=== PATIENT | female | born 1960 | race Hispanic/Latino ===

== ENCOUNTER → 2018-09-01 | Outpatient (CLI) | payer BC | END | disposition home or self-care (01) | LOC: RAH 14:14 | PROVIDERS: ATTEND Family Medicine | DX: Z12.31 Encounter for screening mammogram for malignant neoplasm of breast (principal) | CPT/HCPCS: 77067 ==

== ENCOUNTER → 2018-09-16 | Outpatient (CLI) | payer BC | END | disposition home or self-care (01) | LOC: RAH 07:34 | PROVIDERS: ATTEND Family Medicine | DX: K76.0 Fatty (change of) liver, not elsewhere classified (principal); R16.0 Hepatomegaly, not elsewhere classified | CPT/HCPCS: 76705 ==

== ENCOUNTER 2019-06-11 23:34 | Emergency (ER) | payer BC ==
[2019-06-11] MEDS ORDERED: PHENAZOPYRIDINE HCL 200 MG TABLET ONE (23:53)
[2019-06-12 00:02] LABS: BASOPHILS % (AUTO) 0.8 % (0.0-5.0); EOSINOPHILS % (AUTO) 2.2 % (0.0-8.0); HEMATOCRIT 35.2 % (36-48); LYMPHOCYTES % (AUTO) 35.3 % (21.0-51.0); MEAN CORPUSCULAR HEMOGLOBIN 31.8 pg (27.0-33.0); MEAN CORPUSCULAR HGB CONC 35.2 g/dL (32.0-36.0); MEAN CORPUSCULAR VOLUME 90.2 fL (79-99); MONOCYTES % (AUTO) 6.3 % (3.0-13.0); NEUTROPHILS % (AUTO) 55.4 % (40.0-77.0); PLATELET COUNT (AUTO) 236 K/uL (130-400); RED CELL DISTRIBUTION WIDTH 12.9 % (11.0-15.5); WHITE BLOOD COUNT (AUTO) 6.6 K/uL (4.8-10.8)
[2019-06-12 00:09] LABS: CREATININE 0.7 mg/dL (0.5-1.5); POTASSIUM 4.2 mmol/L (3.5-5.1)
[2019-06-12 00:16] LABS: ALBUMIN 3.7 g/dL (3.5-5.0); BILIRUBIN,DIRECT 0.1 mg/dL (0.0-0.3); BILIRUBIN,TOTAL 0.3 mg/dL (0.2-1.0); TOTAL PROTEIN, SERUM 6.9 g/dL (6.0-8.3)
[2019-06-12 00:36] LABS: APPEARANCE,URINE Clear (CLEAR); BILIRUBIN,URINE Negative (NEGATIVE); COLOR,URINE Yellow (YELLOW); GLUCOSE, URINE (UA) Negative (NEGATIVE); KETONES,URINE Negative (NEGATIVE); LEUKOCYTE ESTERASE ,URINE Small (NEGATIVE); NITRATE,URINE Negative (NEGATIVE); OCCULT BLOOD,URINE Negative (NEGATIVE); PH,URINE 5.5 (5.0-8.0); PROTEIN,URINE Negative (NEGATIVE)
[2019-06-12 01:02] LABS: BACTERIA,URINE None Seen /HPF (None Seen); MUCUS,URINE Rare LPF (None Seen); RBC,URINE None Seen /HPF (0-1); SQUAMOUS EPITHELIAL CELL,UR Few /HPF (0-2)
== END 2019-06-12 01:01 | disposition home or self-care (01) ==
LOC: EDH 23:34
DX: N39.0 Urinary tract infection, site not specified (principal); Z90.49 Acquired absence of other specified parts of digestive tract; Z98.890 Other specified postprocedural states; Z88.1 Allergy status to other antibiotic agents
CPT/HCPCS: 36415; 80048; 80076; 81001; 85025

== ENCOUNTER → 2019-07-17 | Outpatient (CLI) | payer BC | END | disposition home or self-care (01) | LOC: RAH 13:07 | PROVIDERS: ATTEND Family Medicine | DX: N83.291 Other ovarian cyst, right side (principal); Z90.710 Acquired absence of both cervix and uterus; Z90.721 Acquired absence of ovaries, unilateral | CPT/HCPCS: 76856 ==

== ENCOUNTER 2019-12-16 18:55 | Emergency (ER) | payer BC ==
[2019-12-16] MEDS ORDERED: ONDANSETRON ODT 4 MG TAB ONE (20:03)
[2019-12-16 20:18] LABS: BASOPHILS % (AUTO) 0.5 % (0.0-5.0); EOSINOPHILS % (AUTO) 1.1 % (0.0-8.0); HEMATOCRIT 39.7 % (36-48); LYMPHOCYTES % (AUTO) 42.4 % (21.0-51.0); MEAN CORPUSCULAR HEMOGLOBIN 29.7 pg (27.0-33.0); MEAN CORPUSCULAR VOLUME 87.3 fL (79-99); MONOCYTES % (AUTO) 5.3 % (3.0-13.0); NEUTROPHILS % (AUTO) 50.5 % (40.0-77.0); PLATELET COUNT (AUTO) 281 K/uL (130-400); RED BLOOD CELL COUNT(AUTO) 4.55 MIL/uL (4.00-5.50); RED CELL DISTRIBUTION WIDTH 12.2 % (11.0-15.5); WHITE BLOOD COUNT (AUTO) 6.3 K/uL (4.8-10.8)
[2019-12-16 20:33] LABS: CREATININE 0.6 mg/dL (0.5-1.5); POTASSIUM 3.7 mmol/L (3.5-5.1)
[2019-12-16 20:37] LABS: ALBUMIN 4.5 g/dL (3.5-5.0); BILIRUBIN,TOTAL 0.6 mg/dL (0.2-1.0); TOTAL PROTEIN, SERUM 7.9 g/dL (6.0-8.3)
== END 2019-12-16 22:12 | disposition home or self-care (01) ==
LOC: EDH 18:55
DX: K76.0 Fatty (change of) liver, not elsewhere classified (principal); Z88.1 Allergy status to other antibiotic agents; Z90.710 Acquired absence of both cervix and uterus; Z98.890 Other specified postprocedural states
CPT/HCPCS: 36415; 76705; 80053; 83690; 85025

== ENCOUNTER → 2020-09-12 | Outpatient (CLI) | payer BC | END | disposition home or self-care (01) | LOC: RAH 15:30 | PROVIDERS: ATTEND Family Medicine | DX: Z12.31 Encounter for screening mammogram for malignant neoplasm of breast (principal) | CPT/HCPCS: 77067 ==

== ENCOUNTER → 2021-11-25 | Outpatient (CLI) | payer BC | END | disposition home or self-care (01) | LOC: RAH 08:24 | PROVIDERS: ATTEND Family Medicine | DX: Z12.31 Encounter for screening mammogram for malignant neoplasm of breast (principal); N63.20 Unspecified lump in the left breast, unspecified quadrant | CPT/HCPCS: 77067 ==

== ENCOUNTER → 2024-02-20 | Outpatient (CLI) | payer BC | END | disposition home or self-care (01) | LOC: RAH 10:12 | PROVIDERS: ATTEND Family Medicine | DX: Z12.31 Encounter for screening mammogram for malignant neoplasm of breast (principal); N63.10 Unspecified lump in the right breast, unspecified quadrant; N63.20 Unspecified lump in the left breast, unspecified quadrant | CPT/HCPCS: 77067 ==

== ENCOUNTER → 2025-02-22 | Outpatient (CLI) | payer BC ==
--- NOTE | 2025-02-22 11:15 | HMCIMG ---
MAMMO SCREENING BILATERAL HISTORY: Screening mammogram. COMPARISON: 02/20/2024 TECHNIQUE: Bilateral screening mammogram with CAD was performed with craniocaudal and mediolateral oblique projections. FINDINGS: There are scattered areas of fibroglandular density. Nodular densities are again seen in the right breast unchanged. Bilateral dystrophic calcifications are again seen grossly unchanged. There is no evidence of a dominant mass, or suspicious microcalcification. There is no evidence of nipple retraction or skin thickening. IMPRESSION: 1. Stable mammogram. Patient was entered into a reminder system with a target due date for their next mammogram. BI-RADS: CATEGORY 2: BENIGN FINDINGS Recommend monthly self breast exam as well as annual clinical examination. A negative x-ray should not delay biopsy if a dominant or clinically suspicious mass is present, since 8-10% of cancers are not identified by mammography. Dense breasts particularly, may obscure an underlying neoplasm. Some of these may be detected clinically and therefore, clinical examination is an essential part of breast evaluation.
== END | disposition home or self-care (01) ==
LOC: RAH 10:35
PROVIDERS: ATTEND Physician Assistant Medical
DX: Z12.31 Encounter for screening mammogram for malignant neoplasm of breast (principal); R92.30 Dense breasts, unspecified
CPT/HCPCS: 77067

== ENCOUNTER 2025-03-01 18:00 | Emergency (ER) | payer BC ==
[~2025-03-01] VITALS: Ht 154.9 cm; Wt 77.1 kg
[2025-03-01 18:02] VITALS: TEMP 98.3
--- NOTE | 2025-03-01 18:15 | ERN ---
General Chief Complaint: Abdominal Pain Stated Complaint: RUQ PAIN X 10 YRS, WORSE TODAY Time Seen by MD: 18:03 Time Seen by Midlevel: 18:03 Source: patient History of Present Illness Initial Comments Patient is a 64-year-old female with a past medical history of gastritis presenting to the emergency department with right upper quadrant abdominal pain that started at approximately 10:00 a.m. this morning. She does report similar episodes in the past that has been intermittent in nature for years. However, they usually resolve. Today she states the pain started at 10 has been constant ever since. Denies any nausea or vomiting. She is followed by GI specialist Dr. Gopal Nolen. Denies any other symptoms at this time Allergies: Coded Allergies: clindamycin (Unverified Allergy, Unknown, 06/12/19) codeine (Unverified Allergy, Unknown, 03/01/25) Past Medical History Past Medical History: GERD Past Surgical History: Hysterectomy ROS Dictation CONSTITUTIONAL: Negative except for HPI HEAD/FACE: Negative except for HPI EENT: Negative except for HPI RESPIRATORY: Negative except for HPI GASTROINTESTINAL/ABDOMINAL: Negative except for HPI GENITOURINARY: Negative except for HPI MUSCULOSKELETAL: Negative except for HPI INTEGUMENTARY: Negative except for HPI NEUROLOGICAL/PSYCH: Negative except for HPI HEMATOLOGIC/LYMPHATIC: Negative except for HPI All Systems Negative, Except as noted above. 13 point review of systems assessed and all negative except for above. Physical Exam Physical Exam Dictation Vital Signs reviewed General Appearance: Alert, oriented x 3, no acute distress, well developed, nourished. Head and Face: non-traumatic. Eyes: PERRL, pink conjunctivas, eyelid no trauma, anterior chamber with arcus senilis. Ears: Pinnas intact and no signs of trauma or erythema ear canals clear and no discharge TM no erythema Nose: No discharge, no bleeding. Oropharynx: Mouth normal, tongue pink, pharynx clear,no erythema, tonsils no exudates, no abscesses noted, mucous membrane moist Neck: Supple, non-tender, no thyromegaly, no masses, no JVD, no bruits Breast:Deferred Chest:No tenderness, no crepitus, no paradoxical movement, no retractions Lungs:Clear, well-ventilated, symmetric, no rales, no wheezing, no rhonchi, no stridor, good breath sounds bilaterally Heart: Regular rate, regular rhythm, no murmur, no gallops Vascular: no peripheral edema, Abdomen: Soft, positive bowel sounds, nondistended, no guarding, Mild right upper quadrant abdominal tenderness, no rebound, no masses no hepatomegaly, no splenomegaly, no Rincon's sign, no hernias. Rectal: Deferred Genital: Deferred Neurological: Normal speech, motor function intact, sensory function intact Musculoskeletal: Neck nontender, full range of motion, back nontender, full range of motion, Extremities: nontender, full range of motion Skin: Color pink, dry, no turgor, no rash, no lacerations, no abrasions, no contusions. Lymphatic: Deferred Results Laboratory and Microbiology Lab and Micro Result Laboratory Tests Test 03/01/25 18:27 03/01/25 18:28 Urine Color LIGHT-YELLOW (YELLOW) Urine Appearance CLEAR (CLEAR) Urine pH 6.0 (5.0-8.0) Urine Specific [place] 1.018 (1.001-1.031) Urine Protein NEGATIVE mg/dL (NEGATIVE) Urine Glucose (UA) NEGATIVE mg/dL (NEGATIVE) Urine Ketones NEGATIVE mg/dL (NEGATIVE) Urine Occult Blood NEGATIVE (NEGATIVE) Urine Nitrate NEGATIVE (NEGATIVE) Urine Bilirubin NEGATIVE mg/dL (NEGATIVE) Urine Urobilinogen 0.2 mg/dL (0.2-1.0) Urine Leukocyte Esterase 75 Felipe/uL (NEGATIVE) H Urine RBC 0-1 /HPF (0-1) Urine WBC 2-5 /HPF (0-1) H Urine Squamous Epithelial Cells RARE /HPF (0-2) Urine Bacteria FEW /HPF (None Seen) White Blood Count 5.1 K/uL (4.8-10.8) Red Blood Count 4.08 MIL/uL (4.00-5.50) Hemoglobin 12.3 g/dL (12.0-16.0) Hematocrit 37.0 % (36-48) Mean Corpuscular Volume 90.7 fL (79-99) Mean Corpuscular Hemoglobin 30.1 pg (27.0-33.0) Mean Corpuscular Hemoglobin Concent 33.2 g/dL (32.0-36.0) Red Cell Distribution Width 12.4 % (11.0-15.5) Platelet Count 241 K/uL (130-400) Mean Platelet Volume 11.0 fL (7.5-10.5) H Immature Granulocyte % (Auto) 0.4 % (0-1) Neutrophils (%) (Auto) 51.7 % (40.0-77.0) Lymphocytes (%) (Auto) 40.0 % (21.0-51.0) Monocytes (%) (Auto) 6.1 % (3.0-13.0) Eosinophils (%) (Auto) 1.4 % (0.0-8.0) Basophils (%) (Auto) 0.4 % (0.0-5.0) Neutrophils # (Auto) 2.6 K/uL (1.8-7.7) Lymphocytes # (Auto) 2.0 K/uL (1.0-4.8) Monocytes # (Auto) 0.3 K/uL (0.1-1.0) Eosinophils # (Auto) 0.07 K/uL (0.00-0.70) Basophils # (Auto) 0.02 K/uL (0.00-0.20) Absolute Immature Granulocyte (auto 0.02 K/uL (0-1) Nucleated Red Blood Cells 0.0 % (0.0-0.19) Sodium Level 139 mmol/L (136-145) Potassium Level 4.0 mmol/L (3.5-5.1) Chloride Level 102 mmol/L (101-111) Carbon Dioxide Level 31 mmol/L (21-32) Blood Urea Nitrogen 13 mg/dL (7-18) Creatinine 0.7 mg/dL (0.5-1.0) Glomerular Filtration Rate Calc 98 mL/min (>90) Random Glucose 89 mg/dL (70-105) Total Calcium 8.7 mg/dL (8.5-10.1) Total Bilirubin 0.4 mg/dL (0.2-1.0) Direct Bilirubin 0.1 mg/dL (0.0-0.3) Aspartate Amino Transf (AST/SGOT) 17 U/L (10-37) Alanine Aminotransferase (ALT/SGPT) 21 U/L (12-78) Alkaline Phosphatase 80 U/L (50-136) Total Protein 7.1 g/dL (6.0-8.3) Albumin 3.9 g/dL (3.5-5.0) Lipase 55 U/L (16-77) Labs Reviewed?: Yes MDM MDM: Patient is a 64-year-old female with a past medical history of gastritis presenting to the emergency department with right upper quadrant abdominal pain that started at approximately 10:00 a.m. this morning. She does report similar episodes in the past that has been intermittent in nature for years. However, they usually resolve. Today she states the pain started at 10 has been constant ever since. Denies any nausea or vomiting. She is followed by GI specialist Dr. Gopal Nolen. Denies any other symptoms at this time Initial vital signs are stable. Patient was afebrile and nontoxic appearing. On physical examination patient has mild right upper quadrant abdominal tenderness with no rebound or guarding. The remainder of her physical examination is unremarkable. An abdominal workup was initiated. CBC shows no leukocytosis, no anemia, no thrombocytopenia. Chemistries unremarkable. LFTs are normal. Bilirubin is normal. No signs of biliary obstruction. Urinalysis not show any evidence of infection. Right upper quadrant abdominal ultrasound reveals small gallstones with borderline ductal dilation. The patient was given 15 mg of ketorolac IV. On repeat examination she reports feeling significantly improved. Lab and imaging findings were discussed with the patient she was advised to follow up with the general surgeon sourav Oconnor did offer admission for further observation and management however the patient refused and states she will be following up outpatient. Differential diagnosis: Acute cholecystitis, cholelithiasis, biliary colic, grijalva creatitis There are no social concerns with this patient. Prescription drug management Prescriptions will include: None Medical management and examination interpretation discussions were had by me with other qualified healthcare professionals as indicated for the patient's care. ED Course Orders Procedure Category Date Status Time Cbc With Differential LAB 03/01/25 Complete 18:09 Basic Metabolic Panel LAB 03/01/25 Complete 18:09 Lipase LAB 03/01/25 Complete 18:09 Hepatic Function Panel LAB 03/01/25 Complete 18:09 Urinalysis Profile LAB 03/01/25 Complete 18:09 Us Abdominal Ruq\Ltd US 03/01/25 Resulted 18:09 Ketorolac PHA 03/01/25 Complete Tromethamine 15mg/Ml 18:30 Culture Urine ALEXY 03/01/25 In Process 18:48 Current Medications Medications (Trade) Dose Ordered Sig/Larry Route PRN Reason Start Time Stop Time Status Last Admin Dose Admin Ketorolac Tromethamine (toRADol) 15 mg ONCE ONCE IV 03/01/25 18:30 03/01/25 18:31 DC 03/01/25 18:56 Vital Signs Date Time Temp Pulse Resp B/P (MAP) Pulse Ox O2 Delivery O2 Flow Rate FiO2 03/01/25 20:44 63 15 112/60 97 Room Air* 0 21 03/01/25 18:02 98.2 74 16 110/65 98 Room Air 0 03/01/25 18:02 98.2 74 16 110/65 98 Room Air* 0 21 DX & DISP Disposition: Discharge Departure Impression: Primary Impression: Biliary colic Additional Impression: Cholelithiasis Condition: Stable Additional Instructions: Your blood work today is unremarkable. Your right upper quadrant ultrasound reveals small gallstones with borderline ductal dilation however there was no evidence of acute cholecystitis. You will need to follow up with the general surgeon outpatient for further evaluation. Referrals: ROB BOSCH (PCP) ROB VILLANUEVA MD, NICOLE M MD MCKENNA, MICHAEL J DO Time of Disposition: 21:20 I have reviewed the case, and I agree with, Diagnosis and Plan I performed the substantive portion of the visit. I have reviewed and personally made and approve the management plan that is documented in the note by myself or the ZANDER. I acknowledge for responsibility for the patient's management plan. LASHANDA LAZO Mar 01, 2025 18:15
[2025-03-01 18:38] LABS: BASOPHILS # (AUTO) 0.02 K/uL (0.00-0.20); BASOPHILS % (AUTO) 0.4 % (0.0-5.0); EOSINOPHILS # (AUTO) 0.07 K/uL (0.00-0.70); EOSINOPHILS % (AUTO) 1.4 % (0.0-8.0); IMMATURE GRANULOCYTE ABSOLUTE 0.02 K/uL (0-1); MEAN CORPUSCULAR HEMOGLOBIN 30.1 pg (27.0-33.0); MEAN CORPUSCULAR HGB CONC 33.2 g/dL (32.0-36.0); MEAN CORPUSCULAR VOLUME 90.7 fL (79-99); MONOCYTES # (AUTO) 0.3 K/uL (0.1-1.0); MONOCYTES % (AUTO) 6.1 % (3.0-13.0); NEUTROPHILS # (AUTO) 2.6 K/uL (1.8-7.7); NEUTROPHILS % (AUTO) 51.7 % (40.0-77.0); PLATELET COUNT (AUTO) 241 K/uL (130-400); RED BLOOD CELL COUNT(AUTO) 4.08 MIL/uL (4.00-5.50); RED CELL DISTRIBUTION WIDTH 12.4 % (11.0-15.5); WHITE BLOOD COUNT (AUTO) 5.1 K/uL (4.8-10.8)
[2025-03-01 18:44] LABS: APPEARANCE,URINE CLEAR (CLEAR); BILIRUBIN,URINE NEGATIVE (NEGATIVE); COLOR,URINE LIGHT-YELLOW (YELLOW); GLUCOSE, URINE (UA) NEGATIVE (NEGATIVE); KETONES,URINE NEGATIVE (NEGATIVE); LEUKOCYTE ESTERASE ,URINE 75 Leu/uL (NEGATIVE); NITRATE,URINE NEGATIVE (NEGATIVE); OCCULT BLOOD,URINE NEGATIVE (NEGATIVE); PROTEIN,URINE NEGATIVE (NEGATIVE); UROBILINOGEN,URINE 0.2 mg/dL (0.2-1.0)
[2025-03-01 18:47] LABS: CREATININE 0.7 mg/dL (0.5-1.0)
[2025-03-01 18:48] LABS: ADD UA MICROSCOPIC YES
[2025-03-01 18:51] LABS: ALBUMIN 3.9 g/dL (3.5-5.0); BILIRUBIN,DIRECT 0.1 mg/dL (0.0-0.3); BILIRUBIN,TOTAL 0.4 mg/dL (0.2-1.0); TOTAL PROTEIN, SERUM 7.1 g/dL (6.0-8.3)
[2025-03-01 18:53] LABS: BACTERIA,URINE FEW /HPF (None Seen); MUCUS,URINE RARE LPF (None Seen); RBC,URINE 0-1 /HPF (0-1); SQUAMOUS EPITHELIAL CELL,UR RARE /HPF (0-2)
[2025-03-01] MEDS: ketOROlac 15MG/ML VIAL (15MG/ML) IV ONE (18:56)
--- NOTE | 2025-03-01 20:46 | HMCIMG ---
US ABDOMINAL RUQ\E\LTD HISTORY: Abdominal pain COMPARISON: None TECHNIQUE: Right upper quadrant abdominal ultrasound study was performed. FINDINGS: Liver measures 18 cm. The visualized portion of the pancreas is within normal limits. Liver is echogenic consistent with liver parenchymal disease. Small gallstones are seen in the gallbladder. Common duct measures 6 mm. No evidence of gallbladder wall thickening is seen. Right kidney measures 10.4 x 5.1 x 4.7 cm. No hydronephrosis is seen of the right kidney. IMPRESSION: 1. Small gallstones. Borderline ductal dilatation is seen. 2. No hydronephrosis is seen.
[2025-03-01 21:51] VITALS: BP 115/65; PULSE 63; RESP 15; O2SAT 97
== END 2025-03-01 21:52 | disposition home or self-care (01) ==
LOC: EDH 18:00
DX: K80.50 Calculus of bile duct without cholangitis or cholecystitis without obstruction (principal); K80.20 Calculus of gallbladder without cholecystitis without obstruction; K21.9 Gastro-esophageal reflux disease without esophagitis; Z88.5 Allergy status to narcotic agent; Z90.710 Acquired absence of both cervix and uterus; Z88.1 Allergy status to other antibiotic agents
CPT/HCPCS: 99284; 96374; 76705; 80076; 80048; 83690; 85025; 87086; 81001; 36415; J1885

== ENCOUNTER 2025-03-09 10:48 | Inpatient (IN) | payer BC ==
[~2025-03-09] VITALS: Ht 175.3 cm; Wt 76.2 kg
[2025-03-09 11:22] LABS: APPEARANCE,URINE CLEAR (CLEAR); BILIRUBIN,URINE NEGATIVE (NEGATIVE); GLUCOSE, URINE (UA) NEGATIVE (NEGATIVE); KETONES,URINE NEGATIVE (NEGATIVE); LEUKOCYTE ESTERASE ,URINE NEGATIVE Leu/uL (NEGATIVE); NITRATE,URINE NEGATIVE (NEGATIVE); OCCULT BLOOD,URINE NEGATIVE (NEGATIVE); PROTEIN,URINE NEGATIVE (NEGATIVE); UROBILINOGEN,URINE 0.2 mg/dL (0.2-1.0)
[2025-03-09 11:26] LABS: ADD UA MICROSCOPIC NO; COLOR,URINE LIGHT-YELLOW (YELLOW)
[2025-03-09] MEDS: ketOROlac 15MG/ML VIAL (15MG/ML) IV ONE (11:27)
[2025-03-09] MEDS: morPHINE 4 MG SYG IVP ONE (11:27)
[2025-03-09 11:28] LABS: BASOPHILS # (AUTO) 0.04 K/uL (0.00-0.20); BASOPHILS % (AUTO) 0.8 % (0.0-5.0); EOSINOPHILS # (AUTO) 0.05 K/uL (0.00-0.70); HEMATOCRIT 38.5 % (36-48); IMMATURE GRANULOCYTE ABSOLUTE 0.01 K/uL (0-1); LYMPHOCYTES # (AUTO) 1.9 K/uL (1.0-4.8); LYMPHOCYTES % (AUTO) 37.8 % (21.0-51.0); MEAN CORPUSCULAR HEMOGLOBIN 30.4 pg (27.0-33.0); MEAN CORPUSCULAR HGB CONC 33.8 g/dL (32.0-36.0); MONOCYTES # (AUTO) 0.3 K/uL (0.1-1.0); MONOCYTES % (AUTO) 5.4 % (3.0-13.0); NEUTROPHILS # (AUTO) 2.7 K/uL (1.8-7.7); NEUTROPHILS % (AUTO) 54.8 % (40.0-77.0); PLATELET COUNT (AUTO) 252 K/uL (130-400); RED BLOOD CELL COUNT(AUTO) 4.28 MIL/uL (4.00-5.50); RED CELL DISTRIBUTION WIDTH 12.3 % (11.0-15.5)
[2025-03-09] MEDS: LACTATED RINGERS 1000ML 1,000 ML IV ONE (11:28)
[2025-03-09 11:42] LABS: ALBUMIN 4.3 g/dL (3.5-5.0); BILIRUBIN,DIRECT 0.1 mg/dL (0.0-0.3); BILIRUBIN,TOTAL 0.5 mg/dL (0.2-1.0); CREATININE 0.5 mg/dL (0.5-1.0); POTASSIUM 3.9 mmol/L (3.5-5.1); TOTAL PROTEIN, SERUM 7.5 g/dL (6.0-8.3)
[2025-03-09 11:54] LABS: INR 0.98 (0.85-1.15); PROTHROMBIN TIME 10.4 SEC (9.6-11.6)
--- NOTE | 2025-03-09 11:57 | ERN ---
General Chief Complaint: Abdominal Pain Stated Complaint: ABDOMINAL PAIN RUQ Time Seen by MD: 10:50 History of Present Illness Initial Comments 64-year-old female presents for right upper quadrant pain, nausea, decreased oral intake for the last week. Patient reports she had an onset of right upper quadrant pain about a week ago. She was evaluated here and told she had gallstones. She was discharged home to follow up with GI. She reports that since then she was had consistent right upper quadrant pain that does not re solve. She has been very nauseous, and unable to eat for almost seven days now. She was able to drink liquids. No fevers. She was tender to the right upper quadrant. The pain radiates to her back. Allergies: Coded Allergies: clindamycin (Unverified Allergy, Unknown, 06/12/19) codeine (Unverified Allergy, Unknown, 03/01/25) Past Medical History Past Medical History: Gallstones, GERD Past Surgical History: Hysterectomy ROS Dictation CONSTITUTIONAL: No chills, no fever, no weakness, no diaphoresis, no malaise. HEAD/FACE: No signs of trauma. EENT: No eye pain, no blurred vision, no tearing, no double vision, no ear pain, no ear discharge, no nose pain, no nasal congestion, no throat pain, no throat swelling, no mouth pain. RESPIRATORY: No cough, no orthopnea, no SOB, no stridor, no wheezing. CARDIOVASCULAR: No chest pain, no edema, no palpitations, no syncope. GASTROINTESTINAL/ABDOMINAL: Abdominal pain right upper quadrant pain nausea GENITOURINARY: No abnormal discharge, no dysuria, no frequent urination, no hematuria. No complaints of pain in the genitals. MUSCULOSKELETAL: No back pain, no gout, no joint pain, no joint swelling, no muscle pain, no muscle stiffness, no neck pain. INTEGUMENTARY: No change in color, no change in hair/nails, no dryness, no lesion, no lumps, no rash. NEUROLOGICAL/PSYCH: No anxiety, not depressed, no emotional problem, no headache, no numbness, no pre-existing deficit, no history of seizures, no tremors, no weakness. HEMATOLOGIC/LYMPHATIC: Not anemic, no history of blood clots, no apparent bleeding, no bruising, glands not swollen. All Systems Negative, Except as Noted. Physical Exam Physical Exam Dictation VITAL SIGNS: Reviewed. GENERAL APPEARANCE: Alert, oriented x3, moderate distress due to pain HEAD AND FACE: Non-traumatic. EYES: PERRL, pink conjunctivas, eyelid no trauma, anterior chamber clear. EARS: Pinnas intact and no signs of trauma or erythema. Ear canals clear and no discharge. TMs no erythema. NOSE: No discharge, no bleeding. OROPHARYNX: Mouth normal, teeth no caries, tongue pink. Pharynx clear, no erythema. Tonsils no exudates, no abscesses noted. Mucous membrane moist. NECK: Supple, non-tender, no thyromegaly, no masses, no JVD, no bruits. BREAST: Deferred. CHEST: No tenderness, no crepitus, no paradoxical movement, no retractions. LUNGS: Clear, well-ventilated, symmetric, no rales, no wheezing, no rhonchi, no stridor, good breath sounds bilaterally. HEART: Regular rate, regular rhythm, no murmur, no gallops. VASCULAR: No peripheral edema. ABDOMEN: Right upper quadrant tenderness on palpation, no distention RECTAL: Deferred. GENITAL: Deferred. NEUROLOGICAL: Normal speech, gross motor function intact, gross sensory function intact. MUSCULOSKELETAL: Neck nontender, full range of motion, back nontender, full range of motion. EXTREMITIES: Nontender, full range of motion. SKIN: Color pink, dry, no turgor, no rash, no lacerations, no abrasions, no contusions. LYMPHATICS: Deferred. Results Laboratory and Microbiology Lab and Micro Result Laboratory Tests Test 03/09/25 11:15 03/09/25 11:20 Urine Color LIGHT-YELLOW (YELLOW) Urine Appearance CLEAR (CLEAR) Urine pH 6.0 (5.0-8.0) Urine Specific [place] 1.006 (1.001-1.031) Urine Protein NEGATIVE mg/dL (NEGATIVE) Urine Glucose (UA) NEGATIVE mg/dL (NEGATIVE) Urine Ketones NEGATIVE mg/dL (NEGATIVE) Urine Occult Blood NEGATIVE (NEGATIVE) Urine Nitrate NEGATIVE (NEGATIVE) Urine Bilirubin NEGATIVE mg/dL (NEGATIVE) Urine Urobilinogen 0.2 mg/dL (0.2-1.0) Urine Leukocyte Esterase NEGATIVE Felipe/uL White Blood Count 5.0 K/uL (4.8-10.8) Red Blood Count 4.28 MIL/uL (4.00-5.50) Hemoglobin 13.0 g/dL (12.0-16.0) Hematocrit 38.5 % (36-48) Mean Corpuscular Volume 90.0 fL (79-99) Mean Corpuscular Hemoglobin 30.4 pg (27.0-33.0) Mean Corpuscular Hemoglobin Concent 33.8 g/dL (32.0-36.0) Red Cell Distribution Width 12.3 % (11.0-15.5) Platelet Count 252 K/uL (130-400) Mean Platelet Volume 10.5 fL (7.5-10.5) Immature Granulocyte % (Auto) 0.2 % (0-1) Neutrophils (%) (Auto) 54.8 % (40.0-77.0) Lymphocytes (%) (Auto) 37.8 % (21.0-51.0) Monocytes (%) (Auto) 5.4 % (3.0-13.0) Eosinophils (%) (Auto) 1.0 % (0.0-8.0) Basophils (%) (Auto) 0.8 % (0.0-5.0) Neutrophils # (Auto) 2.7 K/uL (1.8-7.7) Lymphocytes # (Auto) 1.9 K/uL (1.0-4.8) Monocytes # (Auto) 0.3 K/uL (0.1-1.0) Eosinophils # (Auto) 0.05 K/uL (0.00-0.70) Basophils # (Auto) 0.04 K/uL (0.00-0.20) Absolute Immature Granulocyte (auto 0.01 K/uL (0-1) Nucleated Red Blood Cells 0.0 % (0.0-0.19) Sodium Level 140 mmol/L (136-145) Potassium Level 3.9 mmol/L (3.5-5.1) Chloride Level 104 mmol/L (101-111) Carbon Dioxide Level 30 mmol/L (21-32) Blood Urea Nitrogen 8 mg/dL (7-18) Creatinine 0.5 mg/dL (0.5-1.0) Glomerular Filtration Rate Calc 106 mL/min (>90) Random Glucose 90 mg/dL (70-105) Total Calcium 9.3 mg/dL (8.5-10.1) Total Bilirubin 0.5 mg/dL (0.2-1.0) Direct Bilirubin 0.1 mg/dL (0.0-0.3) Aspartate Amino Transf (AST/SGOT) 17 U/L (10-37) Alanine Aminotransferase (ALT/SGPT) 21 U/L (12-78) Alkaline Phosphatase 73 U/L (50-136) Total Protein 7.5 g/dL (6.0-8.3) Albumin 4.3 g/dL (3.5-5.0) Lipase 51 U/L (16-77) MDM CC: Right upper quadrant abdominal pain radiates to the right back and flank, known gallstones Historian: Patient Comorbidities: Hysterectomy Limitations by social determinants of health: None Differential diagnosis: Cholelithiasis, choledocholithiasis, cholecystitis, cholangitis, gastritis, surgical pathology, sepsis, other Vital signs: Stable, remained stable here in the ER. Labs (independently ordered and interpreted by me ): The CBC is normal. Electrolytes stable. Liver enzymes stable. Lipase stable. Urinalysis unremarkable. I performed an external chart review, she had an ultrasound done on 03/01/2025 with the time she had borderline ductal dilation common bile duct measuring six with small gallstones. She has been symptomatic since she visited this facility, she was had decreased oral intake and she was in quite significant pain. Treatment here in ED: 1 L normal saline, and p.o., given IV morphine. On re- evaluation she was still uncomfortable. Due to intractable pain in symptoms most consistent with cholelithiasis versus choledocholithiasis, we will admit the patient for further treatment and evaluation. She would likely needs an MRCP. Consultation: Hospitalist. ED Course Orders Procedure Category Date Status Time Cbc With Differential LAB 03/09/25 Complete 11:03 Urinalysis Profile LAB 03/09/25 Complete 11: Chest 1vw RAD 03/09/25 Taken 11:03 Lipase LAB 03/09/25 Complete 11:03 Basic Metabolic Panel LAB 03/09/25 Complete 11:03 Hepatic Function Panel LAB 03/09/25 Complete 11:03 Prothrombin Time With LAB 03/09/25 In Process INR 11:03 Nothing By Mouth DIET 03/09/25 Transmitted Lunch Lactated Ringers PHA 03/09/25 Complete 1000ml (Lactated 11:30 Morphine 4mg Syg PHA 03/09/25 Complete (Morphine 4mg Syg) 11:30 Ketorolac PHA 03/09/25 Complete Tromethamine 15mg/Ml 11:30 Current Medications Medications (Trade) Dose Ordered Sig/Larry Route PRN Reason Start Time Stop Time Status Last Admin Dose Admin Ketorolac Tromethamine (toRADol) 15 mg ONCE ONCE IV 03/09/25 11:30 03/09/25 11:31 DC 03/09/25 11:27 Lactated Ringer's 1,000 ml @ 0 mls/hr ONCE ONCE IV 03/09/25 11:30 03/09/25 11:31 DC 03/09/25 11:28 Morphine Sulfate (morPHINE 4MG SYG) 4 mg ONCE ONCE IVP 03/09/25 11:30 03/09/25 11:31 DC 03/09/25 11:27 Vital Signs Date Time Temp Pulse Resp B/P (MAP) Pulse Ox O2 Delivery O2 Flow Rate FiO2 03/09/25 11:12 98.1 54 20 130/73 98 Room Air* 0 21 03/09/25 10:50 98.1 54 20 130/73 98 Room Air DX & DISP Disposition: Discharge Departure Impression: Primary Impression: Cholelithiasis Additional Impression: Intractable pain Condition: Stable Referrals: ROB BOSCH (PCP) LIZZIE MONTOYA DO March 09, 2025 11:57
[2025-03-09] MEDS ORDERED: CALC-259 PO (12:08)
[2025-03-09] MEDS ORDERED: SUCR1TAB2 PO (12:09)
[2025-03-09] MEDS ORDERED: OMEP40CA21 PO (12:10)
[2025-03-09] MEDS ORDERED: BIOT10TA PO (12:14)
[2025-03-09] MEDS ORDERED: OMEG100033 PO (12:15)
[2025-03-09] MEDS ORDERED: VITA400T9 PO (12:16)
--- NOTE | 2025-03-09 12:16 | NUR ---
HOME MEDICATIONS IN CHART. PENDING TO BE RECONSILED BY PHYSICIAN.
--- NOTE | 2025-03-09 12:22 | HMCIMG ---
Exam Type: CHEST 1VW Clinical Information: chest pain Comparison: None Findings: The lungs are clear. The heart is normal in size. There is tortuosity of the aorta which artifactually enlarges the mediastinum. No actual mediastinal pathology is detected. IMPRESSION: Tortuous aorta. Clear lungs.
--- NOTE | 2025-03-09 13:12 | NUR ---
ASSUMED CARE AT THIS TIME.
[2025-03-09] MEDS ORDERED: acetaMINOPHEN 325 MG TAB PO PRN ×3 (14:00)
[2025-03-09] MEDS ORDERED: oxyCODONE/aceTAMIN 5/325MG TAB PO PRN (14:00)
[2025-03-09] MEDS ORDERED: ZOLPidem TARTrate 5 MG TAB PO PRN (14:00)
[2025-03-09] MEDS ORDERED: NITROGLYCERIN 0.4 MG SL TAB SL PRN (14:00)
[2025-03-09] MEDS ORDERED: hydrALAZine 20MG/ML VIAL IV PRN (14:00)
[2025-03-09] MEDS ORDERED: DiphenhydrAMINE HCL 50 MG/ML VIAL IV PRN (14:00)
[2025-03-09] MEDS ORDERED: morPHINE 2 MG SYG IVP PRN (14:00)
[2025-03-09] MEDS ORDERED: GLUCAGON 1MG KIT 1 MG ML IM PRN (14:00)
[2025-03-09] MEDS ORDERED: PoTASSium chloRIDE 10MEQ SR 10 MEQ/TAB TAB.SR.24H PO PRN (14:00)
[2025-03-09] MEDS ORDERED: FAMOTIDINE 20MG VIAL IV PRN (14:00)
[2025-03-09] MEDS ORDERED: PoTASSium chloRIDE 10MEQ/100ML 100 ML IV PRN (14:00)
[2025-03-09] MEDS ORDERED: ondanSETRON 4MG INJ IV PRN (14:00)
[2025-03-09] MEDS ORDERED: MAGNESIUM 2GM PREMIX 50ML 50 ML IV PRN (14:00)
[2025-03-09] MEDS ORDERED: PoTASSium chl 10% ELIXIR 20MEQ 20 MEQ/15 ML UDCUP PO PRN (14:00)
[2025-03-09] MEDS ORDERED: PoTASSium chloRIDE 20MEQ ER 20 MEQ ERTAB PO PRN (14:00)
[2025-03-09] MEDS ORDERED: DEXTROSE 50%-WATER 50 ML DISP.SYRIN IV PRN (14:00)
[2025-03-09] MEDS ORDERED: LACTULOSE 20 GM/30 ML UDCUP PO PRN (14:00)
[2025-03-09] MEDS ORDERED: guaiFENesin-DM 200/20MG 10ML PO PRN (14:00)
[2025-03-09] MEDS ORDERED: MAG/ALUM/SIMETH 30 ML UDCUP PO PRN (14:00)
[2025-03-09] MEDS: ketOROlac 15MG/ML VIAL (15MG/ML) IV PRN ×2 (14:10→21:07)
[2025-03-09] MEDS: 0.9%NACL 1000ML 1,000 ML IV SCH (14:10)
--- NOTE | 2025-03-09 14:43 | NUR ---
DCP: HOME Pt works at [employer], states when not sick, very active and independent, drives, able to complete ADLS on her own. Requires no assistance with home management and meal prep. Uses no DME or in home care services. PCP Abbey Hooker and uses [facility] for rx. Denies dc needs and will return home Addendum: 03/09/25 at 1452 by MICHEAL MAZARIEGOS Amended: Links added.
--- NOTE | 2025-03-09 16:14 | HP ---
[facility] HISTORY AND PHYSICAL Date of Service: March 09, 2025 Time of Service: 15:22 PCP:Dr Keith Mota Admitting: Dr Darling, Allergies: Clindamycin, codeine HISTORY OF PRESENT ILLNESS: [ Patient is 64 years old female with a past medical history of polyps removal, hysterectomy, gastritis, glaucoma, hyperlipidemia, diabetes, gallstones, GERD, who came to emergency department for evaluation of the right upper quadrant pain associated with the nausea, vomiting and decreased oral intake for the past about a week. Patient stated that she has been having right upper quadrant pain for about a week which the pain radiates to her back on right side. Previously she was here at [facility] and she was notified that she had gallstone within she was discharged home and asked to follow up with GI outpatient. Since the pain has not resolved and that is intolerable patient dec ided to come to emergency department today. Right upper quadrant is tender to touch. ] Most recent vital signs temperature 98.2� pulse 61 respiration 12 blood pressure 121/48 patient is on room air satting 97%. WBC hemoglobin 13 hematocrit 38.5 Platelets 252 urinalysis negative sodium 140 potassium 3.9 CO2 30 BUN 8 creatinine 0.5 GFR 106 bilirubin 0.5 AST 70 ALT 21 albumin 4.3 lipase 51. Chest x-ray negative. 03/01/2025 ultrasound abdomen showed small gallstones. In borderline ductal dilation is seen. No hydronephrosis is seen. We will order MRCP in the meantime. Patient will be admitted under hospitalist care for further evaluation/recommendation. GI and surgeon was consulted. A.m. labs REVIEW OF SYSTEMS CONSTITUTIONAL: Denies fevers, chills, or night sweats. No unintentional weight loss reported. NEUROLOGICAL: Denies headache, amaurosis fugax, motor weakness, sensory deficit, vertigo/spinning sensation, gait abnormalities, or tremors. ENT: No hearing loss, otalgia, otorrhea, rhinitis, rhinorrhea, hoarseness, or sore throat. CARDIOVASCULAR: Denies any exertional angina, dyspnea on exertion, orthopnea, paroxysmal nocturnal dyspnea, palpitations, life-threatening arrhythmias, claudication. PULMONARY: Denies any shortness of breath, cough, phlegm/sputum, hemoptysis, pleuritic chest pain. SLEEP: Denies morning headaches, daytime somnolence or napping. Denies difficulty falling asleep, staying asleep, waking from sleep. Denies knowledge of snoring. GASTROINTESTINAL: Denies any type of dysphagia to either liquids or solids. Denies pyrosis, early satiety, , diarrhea, constipation, or changes in stool consistency or caliber. Denies coffee-ground emesis, hematemesis, hematochezia, or melanotic stools. Severe abdominal pain right upper quadrant radiating to the back. Nausea and vomiting GENITOURINARY: Denies frequency, urgency, nocturia, hematuria or incontinence (Storage/Irritative symptoms.) Low urinary stream, straining to void, urinary intermittency or hesitancy, splitting of the voiding stream, terminal dribbling. ENDOCRINOLOGIC: Denies polyuria, polydipsia, polyphagia or heat/cold intolerances. HEMATOLOGIC: Denies thrombophilia/previous clots, or coagulopathy/bleeding disorders. ONCOLOGIC: Denies personal history of malignancy. DERMATOLOGIC: Denies rashes or pruritus. PSYCHIATRIC: Denies any suicidal or homicidal ideation. Denies hallucinations. PAST MEDICAL HISTORY: [Gastritis, glaucoma, hyperlipidemia, diabetes, gallstones, GERD ] PAST SURGICAL HISTORY: [Polyp removal, hysterectomy ] PAST SOCIAL HISTORY: [Patient denies smoking. Patient denies any drug illicit. Patient denies alcohol use] FAMILY HISTORY: [ Patient has the home with hospice ] Coded Allergies: clindamycin (Unverified Allergy, Unknown, 06/12/19) codeine (Unverified Allergy, Unknown, 03/01/25) PHYSICAL EXAM GENERAL APPEARANCE: The patient is awake, alert, and oriented, in no acute cardiopulmonary distress. NEUROLOGICAL: Cranial nerves II-XII grossly intact. Motor is 5/5 in bilateral upper and lower extremities proximal to distal. No sensory deficits. HEENT: Face is symmetric. Pupils are equal and reactive. Extraocular movements are intact. NECK: Supple. No JVD. No thyromegaly. No submental, submandibular, pre-/postauricular, occipital or supraclavicular lymphadenopathy. CHEST: Normal chest expansion. No Telemetry. LUNGS: Absence of any rales, rhonchi or any wheezing. CARDIOVASCULAR: Regular. S1 and S2 normal. No appreciable rubs, murmurs or gallops. ABDOMEN: Soft, , and nondistended. There is no rebound, voluntary guarding, or rigidity.tender : Deferred. No Ann. EXTREMITIES: Non-edematous and not cyanotic. No clubbing. Good capillary refill. SKIN: No skin breakdown. Vital Sign (Last 24 Hours) 03/09/25 12:00 Temp 98.2 Pulse 61 Resp 12 B/P (MAP) 121/48 Pulse Ox 97 O2 Delivery Room Air* O2 Flow Rate 0 FiO2 21 LABS: Laboratory: Test 03/09/25 11:20 03/09/25 11:15 Range/Units White Blood Count 5.0 4.8-10.8 K/uL Red Blood Count 4.28 4.00-5.50 MIL/uL Hemoglobin 13.0 12.0-16.0 g/dL Hematocrit 38.5 36-48 % Mean Corpuscular Volume 90.0 79-99 fL Mean Corpuscular Hemoglobin 30.4 27.0-33.0 pg Mean Corpuscular Hemoglobin Concent 33.8 32.0-36.0 g/dL Red Cell Distribution Width 12.3 11.0-15.5 % Platelet Count 252 130-400 K/uL Mean Platelet Volume 10.5 7.5-10.5 fL Immature Granulocyte % (Auto) 0.2 0-1 % Neutrophils (%) (Auto) 54.8 40.0-77.0 % Lymphocytes (%) (Auto) 37.8 21.0-51.0 % Monocytes (%) (Auto) 5.4 3.0-13.0 % Eosinophils (%) (Auto) 1.0 0.0-8.0 % Basophils (%) (Auto) 0.8 0.0-5.0 % Neutrophils # (Auto) 2.7 1.8-7.7 K/uL Lymphocytes # (Auto) 1.9 1.0-4.8 K/uL Monocytes # (Auto) 0.3 0.1-1.0 K/uL Eosinophils # (Auto) 0.05 0.00-0.70 K/uL Basophils # (Auto) 0.04 0.00-0.20 K/uL Absolute Immature Granulocyte (auto 0.01 0-1 K/uL Nucleated Red Blood Cells 0.0 0.0-0.19 % Prothrombin Time 10.4 9.6-11.6 SEC Prothromb Time International Ratio 0.98 0.85-1.15 Sodium Level 140 136-145 mmol/L Potassium Level 3.9 3.5-5.1 mmol/L Chloride Level 104 101-111 mmol/L Carbon Dioxide Level 30 21-32 mmol/L Blood Urea Nitrogen 8 7-18 mg/dL Creatinine 0.5 0.5-1.0 mg/dL Glomerular Filtration Rate Calc 106 >90 mL/min Random Glucose 90 70-105 mg/dL Total Calcium 9.3 8.5-10.1 mg/dL Total Bilirubin 0.5 0.2-1.0 mg/dL Direct Bilirubin 0.1 0.0-0.3 mg/dL Aspartate Amino Transf (AST/SGOT) 17 10-37 U/L Alanine Aminotransferase (ALT/SGPT) 21 12-78 U/L Alkaline Phosphatase 73 50-136 U/L Total Protein 7.5 6.0-8.3 g/dL Albumin 4.3 3.5-5.0 g/dL Lipase 51 16-77 U/L Urine Color LIGHT-YELLOW YELLOW Urine Appearance CLEAR CLEAR Urine pH 6.0 5.0-8.0 Urine Specific [place] 1.006 1.001-1.031 Urine Protein NEGATIVE NEGATIVE mg/dL Urine Glucose (UA) NEGATIVE NEGATIVE mg/dL Urine Ketones NEGATIVE NEGATIVE mg/dL Urine Occult Blood NEGATIVE NEGATIVE Urine Nitrate NEGATIVE NEGATIVE Urine Bilirubin NEGATIVE NEGATIVE mg/dL Urine Urobilinogen 0.2 0.2-1.0 mg/dL Urine Leukocyte Esterase NEGATIVE NEGATIVE Felipe/uL Current Medications Medications (Trade) Dose Ordered Sig/Larry Route PRN Reason Start Time Stop Time Status Last Admin Dose Admin Acetaminophen (TYLenol 325MG TAB) 650 mg Q4H PRN PO MILD PAIN (1-3) 03/09/25 14:00 04/08/25 13:59 Acetaminophen (TYLenol 325MG TAB) 650 mg Q6H PRN PO MILD PAIN (1-3) 03/09/25 14:00 03/09/25 13:52 DC Acetaminophen (TYLenol 325MG TAB) 650 mg Q6H PRN PO TEMPERATURE GREATER THAN 101.5 03/09/25 14:00 04/08/25 13:59 Al Hydroxide/Mg Hydroxide (MAALox PLUS 30ML) 30 ml Q6H PRN PO INDIGESTION 03/09/25 14:00 04/08/25 13:59 Dextrose (D50w) 50 ml AD PRN IV HYPOGLYCEMIA PROTOCOL 03/09/25 14:00 04/08/25 13:59 Diphenhydramine HCl (BENAdryl INJ) 25 mg Q6H PRN IV SEVERE ITCHING/RASH 03/09/25 14:00 04/08/25 13:59 Famotidine (Pepcid 20mg Vial) 20 mg BID IV 03/09/25 21:00 04/08/25 20:59 Famotidine (Pepcid 20mg Vial) 20 mg BID PRN IV NAUSEA/VOMITING 03/09/25 14:00 03/09/25 13:53 DC Glucagon (Glucagon 1mg Kit) 1 mg AD PRN IM HYPOGLYCEMIA PROTOCOL 03/09/25 14:00 04/08/25 13:59 Guaifenesin/ Dextromethorphan (RobiTUSSin DM 200/20MG 10ML) 10 ml Q4H PRN PO COUGH 03/09/25 14:00 04/08/25 13:59 Hydralazine HCl (APRESOLine 20MG INJ) 10 mg Q6H PRN IV For:SBP above 160;DBP above 90 03/09/25 14:00 04/08/25 13:59 Insulin Human Regular (humuLIN R 100 UNIT/ML 3ML) INSULIN SLIDING SCAL... ACHS SQ 03/09/25 16:30 04/08/25 16:29 Ketorolac Tromethamine (toRADol) 15 mg Q8H PRN IV MODERATE PAIN (4-6) 03/09/25 14:00 03/14/25 13:59 03/09/25 14:10 15 MG Lactulose (Constulose 20gm/ 30ml Udcup) 20 gm BID PRN PO CONSTIPATION 03/09/25 14:00 04/08/25 13:59 Magnesium Sulfate 50 ml @ 0 mls/hr PROTOCOL PRN IV other 03/09/25 14:00 04/08/25 13:59 Morphine Sulfate (morPHINE 2MG SYG) 1 mg Q4H PRN IVP SEVERE PAIN (7-10) 03/09/25 14:00 03/16/25 13:59 Nitroglycerin (Nitrostat) 0.4 mg PROTOCOL PRN SL CHEST PAIN 03/09/25 14:00 04/08/25 13:59 Ondansetron HCl (zoFRAN 4MG INJ) 4 mg Q6H PRN IV NAUSEA/VOMITING 03/09/25 14:00 04/08/25 13:59 Oxycodone/ Acetaminophen (perCOCET) 1 tab Q6H PRN PO SEVERE PAIN (7-10) 03/09/25 14:00 03/09/25 13:54 DC Potassium Chloride 100 ml @ 100 mls/hr AD PRN IV POTASSIUM PROTOCOL 03/09/25 14:00 04/08/25 13:59 Potassium Chloride (K-Dur 10meq Sr Tab) 10 meq AD PRN PO POTASSIUM PROTOCOL 03/09/25 14:00 04/08/25 13:59 Potassium Chloride (K-Dur/Klor-Con 20meq) 10 meq AD PRN PO POTASSIUM PROTOCOL 03/09/25 14:00 03/09/25 13:56 DC Potassium Chloride (KCl 10% Elixir 20meq/15ml) 10 meq AD PRN PO POTASSIUM PROTOCOL 03/09/25 14:00 04/08/25 13:59 Sodium Chloride 1,000 ml @ 100 mls/hr Q10H IV 03/09/25 14:00 04/08/25 13:59 03/09/25 14:10 100 MLS/HR Zolpidem Tartrate (AmbIEN) 5 mg HS PRN PO INSOMNIA 03/09/25 14:00 04/08/25 13:59 DIAGNOSTICS / RADIOLOGY: [ ] ASSESSMENT: [ Acute cholecystitis POA Acute choledocholithiasis POA Severe abdominal pain above POA Intractable nausea and vomiting POA Severe diarrhea POA Uncontrolled diabetes mellitus type 2 with hyperglycemia POA Uncontrolled hypertension POA Hyperlipidemia GERD Glaucoma Gastritis History of hysterectomy History of polyp removal] PLAN: [Admit to: Medical-surgical Consults: GI, surgery Antibiotics: none Tests: MRCP Fluids normal saline at 100 mL/hour NEURO: Minimize central acting medications as possible. Fall Precautions. Well lighted room through the day and minimize interruptions through the night to prevent acute delirium. PULMONARY: Chest x-ray negative Supplemental 02 as needed BiPAP as necessary, for respiratory distress Titrate Fio2 to keep Spo2 > or = 90% DuoNeb�s and CPT as needed IS hourly while awake for pulmonary hygiene Out of bed to chair as tolerated VAP Bundle Maintain aspiration precautions at all times CARDIOVASCULAR: Follow hemodynamics. Vital signs per facility protocol GI & NUTRITION: MRCP pending Ultrasound abdomen small gallstones Continue nutritional support Aspirations precautions Prokinetic agents and laxatives as needed KIDNEYS & ELECTROLYTES: Urine culture pending Strict monitoring of intake and output Daily weights Avoid nephrotoxic agents Monitor electrolytes and replace as needed Goal urine output of 30mL/hr or 0.5mL/kg/hr Medications to be dosed according to renal function. Avoid contrast if possible ENDOCRINE: Maintain blood glucose between 100-180 at all times. Insulin sliding scale for blood glucose management Hypoglycemia and hyperglycemia protocol in place INFECTIOUS DISEASE: Trend temperature, WBC and procalcitonin level Follow cultures, deescalate antibiotics as soon as possible. Panculture if new onset fever HEMATOLOGY & COAGULATION: Monitor H&H. Keep Hgb > 7 Transfuse 1 unit of PRBC for Hgb < 7 Transfuse 1 pack of platelets of platelets < 20, 000 Watch for any signs and symptoms of bleeding SKIN: Pressure ulcer prevention per facility protocol Specialty mattress as needed Treatment plan discussed with patient and family at the bedside Medications to be reconciled once obtained by patient and/or family and available to be reconciled in computer p.r.n. 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 Which of the following were discussed? Hospice Care - Yes / No Therapeutic options - Yes / No Advance Directives - Yes / No Other discussions - 2. Discussed with who? Patient and family member at the bedside 3. Voluntary nature of this service was explained to the patient? Yes / No 4. Amount of time spent - ___ more than 35 minutes ____ 5. Reviewed by Physician? (if this service was performed by NPP) Yes / No ATTESTATION BY PHYSICIAN I have seen and examined the patient. I reviewed the documentation, medical decision making, and treatment plan as noted by the mid-level provider above. I agree with the findings and plan of care. AIDA DARLING MD, KATARZYNA B BARREL POLISHER INSIDE March 09, 2025 16:14
[2025-03-09] MEDS: LORazepam 2 MG/ML 1 ML VIAL IVP ONE (16:29)
[2025-03-09] MEDS: INSULIN humuLIN R 100 UNIT/ML 3ML SQ SCH (16:30)
[2025-03-09] MEDS: diazePAM 5 MG/ML 2 ML SYG IVP ONE (16:32)
[2025-03-09] MEDS ORDERED: GADOTERATE MEGLUMINE 5 MMOL/10 ML VIAL IV ONE (17:12)
[2025-03-09] MEDS: FAMOTIDINE 20MG VIAL IV SCH (22:25)
[2025-03-10] VITALS (7 sets, daily range): BP systolic 114–146; BP diastolic 64–76; PULSE 62–70; RESP 19–20; TEMP 97.7–98.1; O2SAT 97–98
--- NOTE | 2025-03-10 00:06 | NUR ---
REPORT GIVEN TO MUKUL ESPINOZA
[2025-03-10 00:36] LABS: INFLUENZA TYPE A Negative For Type A (NEGATIVE); INFLUENZA TYPE B Negative For Type B (NEGATIVE)
[2025-03-10 06:32] LABS: BASOPHILS # (AUTO) 0.03 K/uL (0.00-0.20); BASOPHILS % (AUTO) 0.9 % (0.0-5.0); EOSINOPHILS # (AUTO) 0.05 K/uL (0.00-0.70); EOSINOPHILS % (AUTO) 1.5 % (0.0-8.0); HEMATOCRIT 35.4 % (36-48); IMMATURE GRANULOCYTE ABSOLUTE 0.01 K/uL (0-1); LYMPHOCYTES # (AUTO) 1.3 K/uL (1.0-4.8); LYMPHOCYTES % (AUTO) 39.6 % (21.0-51.0); MEAN CORPUSCULAR HEMOGLOBIN 30.5 pg (27.0-33.0); MEAN CORPUSCULAR HGB CONC 34.2 g/dL (32.0-36.0); MEAN CORPUSCULAR VOLUME 89.2 fL (79-99); MONOCYTES # (AUTO) 0.2 K/uL (0.1-1.0); MONOCYTES % (AUTO) 6.7 % (3.0-13.0); NEUTROPHILS # (AUTO) 1.7 K/uL (1.8-7.7); PLATELET COUNT (AUTO) 218 K/uL (130-400); RED BLOOD CELL COUNT(AUTO) 3.97 MIL/uL (4.00-5.50); RED CELL DISTRIBUTION WIDTH 12.1 % (11.0-15.5); WHITE BLOOD COUNT (AUTO) 3.3 K/uL (4.8-10.8)
[2025-03-10 07:00] LABS: AMMONIA 20 umol/L (11-32)
[2025-03-10 07:09] LABS: ALANINE AMINOTRANSFERASE 17 U/L (12-78); ALBUMIN 3.7 g/dL (3.5-5.0); ASPARTATE AMINOTRANSFERASE 16 U/L (10-37); BILIRUBIN,DIRECT 0.1 mg/dL (0.0-0.3); BILIRUBIN,TOTAL 0.5 mg/dL (0.2-1.0); CARBON DIOXIDE 27 mmol/L (21-32); CHLORIDE 106 mmol/L (101-111); CREATINE KINASE, TOTAL 44 U/L (21-232); CREATININE 0.5 mg/dL (0.5-1.0); GLOMERULAR FILTR. RATE CALC 106 mL/min (>90); GLUCOSE,RANDOM 85 mg/dL (70-105); POTASSIUM 4.2 mmol/L (3.5-5.1); SODIUM SERUM 141 mmol/L (136-145); TOTAL PROTEIN, SERUM 6.2 g/dL (6.0-8.3); UREA NITROGEN, BLOOD 6 mg/dL (7-18)
[2025-03-10 07:35] LABS: HEMOGLOBIN A1C 5.2 % (4.0-6.0)
--- NOTE | 2025-03-10 09:18 | PN ---
[facility] PROGRESS NOTE Date of Service: March 10, 2025 Time of Service: 09:14 SUBJECTIVE: Patient is 64 years old female with a past medical history of polyps removal, hysterectomy, gastritis, glaucoma, hyperlipidemia, diabetes, gallstones, GERD, who came to emergency department for evaluation of the right upper quadrant pain associated with the nausea, vomiting and decreased oral intake for the past 1 week. the pain radiates to her back on right side. Previously she was here at [facility] and she was notified that she had gallstone and asked to follow up with GI outpatient. Since the pain has not resolved and that is intolerable patient decided to come to emergency department today. As per the patient , she has been experiencing similar pain, but low intensity more than a decade. She has noted the pain gets worse with fatty food intake . She had a colonoscopy done in 2019- with polypectomy , but she didnt show up for subsequent colonoscopy after 3 years . Vital signs at the time of presentation :Temperature 98.2�, pulse 61 ,respiration 12, blood pressure 121/48, patient is on room air satting 97%. Labs show : WBC hemoglobin 13 hematocrit 38.5 Platelets 252, urinalysis negative sodium 140 potassium 3.9 CO2 30 BUN 8 creatinine 0.5 GFR 106 bilirubin 0.5 AST 70 ALT 21 albumin 4.3 lipase 51. Chest x-ray negative. 03/01/2025 ultrasound abdomen showed small gallstones. In borderline ductal dilation is seen. Patient was admitted under hospitalist care for further evaluation. 03.10.25: Patient c/o RUQ abdominal pain.She is kept NPO . Pending surgery and GI recommendations.Pending HIDA scan . REVIEW OF SYSTEMS CONSTITUTIONAL: Denies fevers, chills, or night sweats. No unintentional weight loss reported. NEUROLOGICAL: Denies headache, amaurosis fugax, motor weakness, sensory deficit, vertigo/spinning sensation, gait abnormalities, or tremors. ENT: No hearing loss, otalgia, otorrhea, rhinitis, rhinorrhea, hoarseness, or sore throat. CARDIOVASCULAR: Denies any exertional angina, dyspnea on exertion, orthopnea, paroxysmal nocturnal dyspnea, palpitations, life-threatening arrhythmias, claudication. PULMONARY: Denies any shortness of breath, cough, phlegm/sputum, hemoptysis, pleuritic chest pain. SLEEP: Denies morning headaches, daytime somnolence or napping. Denies difficulty falling asleep, staying asleep, waking from sleep. Denies knowledge of snoring. GASTROINTESTINAL: Denies any type of dysphagia to either liquids or solids. Denies pyrosis, early satiety, , diarrhea, constipation, or changes in stool consistency or caliber. Denies coffee-ground emesis, hematemesis, hematochezia, or melanotic stools. Severe abdominal pain right upper quadrant radiating to the back. Nausea and vomiting GENITOURINARY: Denies frequency, urgency, nocturia, hematuria or incontinence (Storage/Irritative symptoms.) Low urinary stream, straining to void, urinary intermittency or hesitancy, splitting of the voiding stream, terminal dribbling. ENDOCRINOLOGIC: Denies polyuria, polydipsia, polyphagia or heat/cold intolerances. HEMATOLOGIC: Denies thrombophilia/previous clots, or coagulopathy/bleeding disorders. ONCOLOGIC: Denies personal history of malignancy. DERMATOLOGIC: Denies rashes or pruritus. PSYCHIATRIC: Denies any suicidal or homicidal ideation. Denies hallucinations. PHYSICAL EXAM GENERAL APPEARANCE: The patient is awake, alert, and oriented, in no acute cardiopulmonary distress. NEUROLOGICAL: Cranial nerves II-XII grossly intact. Motor is 5/5 in bilateral upper and lower extremities proximal to distal. No sensory deficits. HEENT: Face is symmetric. Pupils are equal and reactive. Extraocular movements are intact. NECK: Supple. No JVD. No thyromegaly. No submental, submandibular, pre- /postauricular, occipital or supraclavicular lymphadenopathy. CHEST: Normal chest expansion. No Telemetry. LUNGS: Absence of any rales, rhonchi or any wheezing. CARDIOVASCULAR: Regular. S1 and S2 normal. No appreciable rubs, murmurs or gallops. ABDOMEN: Soft, , and nondistended. There is no rebound, voluntary guarding, or rigidity.tender over the lower part of rib cage : Deferred. No Ann. EXTREMITIES: Non-edematous and not cyanotic. No clubbing. Good capillary refill. SKIN: No skin breakdown. Vital Signs (last 8hr) Date Time Temp Pulse Resp B/P (MAP) Pulse Ox O2 Delivery O2 Flow Rate FiO2 03/10/25 08:00 98.1 64 19 132/70 98 Room Air 03/10/25 03:13 97.7 70 19 114/67 100 Room Air LABS: Laboratory: Test 03/10/25 06:07 03/10/25 04:52 03/10/25 00:11 03/09/25 11:20 Range/Units White Blood Count 3.3 #L 4.8-10.8 K/uL Red Blood Count 3.97 L 4.00-5.50 MIL/uL Hemoglobin 12.1 12.0-16.0 g/dL Hematocrit 35.4 L 36-48 % Mean Corpuscular Volume 89.2 79-99 fL Mean Corpuscular Hemoglobin 30.5 27.0-33.0 pg Mean Corpuscular Hemoglobin Concent 34.2 32.0-36.0 g/dL Red Cell Distribution Width 12.1 11.0-15.5 % Platelet Count 218 130-400 K/uL Mean Platelet Volume 11.1 H 7.5-10.5 fL Immature Granulocyte % (Auto) 0.3 0-1 % Neutrophils (%) (Auto) 51.0 40.0-77.0 % Lymphocytes (%) (Auto) 39.6 21.0-51.0 % Monocytes (%) (Auto) 6.7 3.0-13.0 % Eosinophils (%) (Auto) 1.5 0.0-8.0 % Basophils (%) (Auto) 0.9 0.0-5.0 % Neutrophils # (Auto) 1.7 L 1.8-7.7 K/uL Lymphocytes # (Auto) 1.3 1.0-4.8 K/uL Monocytes # (Auto) 0.2 0.1-1.0 K/uL Eosinophils # (Auto) 0.05 0.00-0.70 K/uL Basophils # (Auto) 0.03 0.00-0.20 K/uL Absolute Immature Granulocyte (auto 0.01 0-1 K/uL Nucleated Red Blood Cells 0.0 0.0-0.19 % Sodium Level 141 136-145 mmol/L Potassium Level 4.2 3.5-5.1 mmol/L Chloride Level 106 101-111 mmol/L Carbon Dioxide Level 27 21-32 mmol/L Blood Urea Nitrogen 6 L 7-18 mg/dL Creatinine 0.5 0.5-1.0 mg/dL Glomerular Filtration Rate Calc 106 >90 mL/min Random Glucose 85 70-105 mg/dL Hemoglobin A1c 5.2 4.0-6.0 % Estimated Average Glucose (eAG) 103 70-126 mg/dL Lactic Acid Level 1.1 0.8-2.5 mmol/L Total Calcium 8.8 8.5-10.1 mg/dL Magnesium Level 2.20 1.80-2.40 mg/dL Total Bilirubin 0.5 0.2-1.0 mg/dL Direct Bilirubin 0.1 0.0-0.3 mg/dL Aspartate Amino Transf (AST/SGOT) 16 10-37 U/L Alanine Aminotransferase (ALT/SGPT) 17 12-78 U/L Alkaline Phosphatase 62 50-136 U/L Ammonia 20 11-32 umol/L Total Creatine Kinase 44 21-232 U/L Troponin I High Sensitivity < 4.0 L 4-50 ng/L B-Type Natriuretic Peptide 27 0-100 pg/mL Total Protein 6.2 6.0-8.3 g/dL Albumin 3.7 3.5-5.0 g/dL Procalcitonin < 0.05 L 0.05-0.5 ng/mL Whole Blood Glucose 79 70-110 MG/DL Influenza Type A Antigen Negative For Type A NEGATIVE Influenza Type B Antigen Negative For Type B NEGATIVE Prothrombin Time 10.4 9.6-11.6 SEC Prothromb Time International Ratio 0.98 0.85-1.15 Lipase 51 16-77 U/L Test 03/09/25 11:15 Range/Units Urine Color LIGHT-YELLOW YELLOW Urine Appearance CLEAR CLEAR Urine pH 6.0 5.0-8.0 Urine Specific [place] 1.006 1.001-1.031 Urine Protein NEGATIVE NEGATIVE mg/dL Urine Glucose (UA) NEGATIVE NEGATIVE mg/dL Urine Ketones NEGATIVE NEGATIVE mg/dL Urine Occult Blood NEGATIVE NEGATIVE Urine Nitrate NEGATIVE NEGATIVE Urine Bilirubin NEGATIVE NEGATIVE mg/dL Urine Urobilinogen 0.2 0.2-1.0 mg/dL Urine Leukocyte Esterase NEGATIVE NEGATIVE Felipe/uL Current Medications Medications (Trade) Dose Ordered Sig/Larry Route PRN Reason Start Time Stop Time Status Last Admin Dose Admin Acetaminophen (TYLenol 325MG TAB) 650 mg Q4H PRN PO MILD PAIN (1-3) 03/09/25 14:00 04/08/25 13:59 Acetaminophen (TYLenol 325MG TAB) 650 mg Q6H PRN PO MILD PAIN (1-3) 03/09/25 14:00 03/09/25 13:52 DC Acetaminophen (TYLenol 325MG TAB) 650 mg Q6H PRN PO TEMPERATURE GREATER THAN 101.5 03/09/25 14:00 04/08/25 13:59 Al Hydroxide/Mg Hydroxide (MAALox PLUS 30ML) 30 ml Q6H PRN PO INDIGESTION 03/09/25 14:00 04/08/25 13:59 Dextrose (D50w) 50 ml AD PRN IV HYPOGLYCEMIA PROTOCOL 03/09/25 14:00 04/08/25 13:59 Diphenhydramine HCl (BENAdryl INJ) 25 mg Q6H PRN IV SEVERE ITCHING/RASH 03/09/25 14:00 04/08/25 13:59 Famotidine (Pepcid 20mg Vial) 20 mg BID IV 03/09/25 21:00 04/08/25 20:59 03/09/25 22:25 20 MG Famotidine (Pepcid 20mg Vial) 20 mg BID PRN IV NAUSEA/VOMITING 03/09/25 14:00 03/09/25 13:53 DC Glucagon (Glucagon 1mg Kit) 1 mg AD PRN IM HYPOGLYCEMIA PROTOCOL 03/09/25 14:00 04/08/25 13:59 Guaifenesin/ Dextromethorphan (RobiTUSSin DM 200/20MG 10ML) 10 ml Q4H PRN PO COUGH 03/09/25 14:00 04/08/25 13:59 Hydralazine HCl (APRESOLine 20MG INJ) 10 mg Q6H PRN IV For:SBP above 160;DBP above 90 03/09/25 14:00 04/08/25 13:59 Insulin Human Regular (humuLIN R 100 UNIT/ML 3ML) INSULIN SLIDING SCAL... ACHS SQ 03/09/25 16:30 04/08/25 16:29 Ketorolac Tromethamine (toRADol) 15 mg Q6H PRN IV MODERATE PAIN (4-6) 03/09/25 21:00 03/14/25 13:59 03/10/25 04:50 15 MG Ketorolac Tromethamine (toRADol) 15 mg Q8H PRN IV MODERATE PAIN (4-6) 03/09/25 14:00 03/09/25 20:56 DC 03/09/25 14:10 15 MG Lactulose (Constulose 20gm/ 30ml Udcup) 20 gm BID PRN PO CONSTIPATION 03/09/25 14:00 04/08/25 13:59 Magnesium Sulfate 50 ml @ 0 mls/hr PROTOCOL PRN IV other 03/09/25 14:00 04/08/25 13:59 Morphine Sulfate (morPHINE 2MG SYG) 1 mg Q4H PRN IVP SEVERE PAIN (7-10) 03/09/25 14:00 03/16/25 13:59 Nitroglycerin (Nitrostat) 0.4 mg PROTOCOL PRN SL CHEST PAIN 03/09/25 14:00 04/08/25 13:59 Ondansetron HCl (zoFRAN 4MG INJ) 4 mg Q6H PRN IV NAUSEA/VOMITING 03/09/25 14:00 04/08/25 13:59 Oxycodone/ Acetaminophen (perCOCET) 1 tab Q6H PRN PO SEVERE PAIN (7-10) 03/09/25 14:00 03/09/25 13:54 DC Potassium Chloride 100 ml @ 100 mls/hr AD PRN IV POTASSIUM PROTOCOL 03/09/25 14:00 04/08/25 13:59 Potassium Chloride (K-Dur 10meq Sr Tab) 10 meq AD PRN PO POTASSIUM PROTOCOL 03/09/25 14:00 04/08/25 13:59 Potassium Chloride (K-Dur/Klor-Con 20meq) 10 meq AD PRN PO POTASSIUM PROTOCOL 03/09/25 14:00 03/09/25 13:56 DC Potassium Chloride (KCl 10% Elixir 20meq/15ml) 10 meq AD PRN PO POTASSIUM PROTOCOL 03/09/25 14:00 04/08/25 13:59 Sodium Chloride 1,000 ml @ 100 mls/hr Q10H IV 03/09/25 14:00 04/08/25 13:59 03/10/25 09:13 100 MLS/HR Zolpidem Tartrate (AmbIEN) 5 mg HS PRN PO INSOMNIA 03/09/25 14:00 04/08/25 13:59 DIAGNOSTICS / RADIOLOGY: [ ] ASSESSMENT: Acute cholecystitis rule in/out POA Acute choledocholithiasis POA Severe abdominal pain above POA Intractable nausea and vomiting POA Uncontrolled diabetes mellitus type 2 with hyperglycemia POA Uncontrolled hypertension POA Chronic problems : Hyperlipidemia GERD Glaucoma Gastritis H/o bilateral nodular breast densities- stable mammogram reports as per outpatient records. History of hysterectomy History of polyp removal PLAN: [Admit to: Medical-surgical Consults: GI, surgery Acute cholecystitis rule in/out POA Acute choledocholithiasis POA Severe abdominal pain above POA Intractable nausea and vomiting POA Fluids normal saline at 100 mL/hour MRCP- unremarkable . Pending HIDA scan Surgery recommendations appreciated GI consult pending plan for antibiotics . 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 I reviewed the documentation, medical de cision making, and treatment plan as noted by the resident provider above. I agree with the findings and plan of care. Stan Larson MD, ANCHU A MD March 10, 2025 09:18
--- NOTE | 2025-03-10 10:10 | HMCIMG ---
Exam Type: MRI OF THE ABDOMEN WITH AND WITHOUT CONTRAST and MR cholangiopancreatography Comparison Study: none History: anbormal us, cholecystitis PROTOCOL: Examination is done with multiecho multiplanar sequences before and after gadolinium administration. ASSET with multiplanar 3-D reconstructions MR cholangiopancreatography sequences are also available for review. MRCP performed customary fashion. 2D axial FIESTA fat-saturated images of abdomen, coronal thick slab MRCP ASSET scan and coronal thin slab MRCP ASSET 3 mm images and maximum intensity projection postprocessing, MIP projected in the customary circumferential and head over heels fashion. Contrast: MultiHance, 15 cc, IV FINDINGS: Enhancing masses of the right breast are seen, the largest of which measures 20 mm. Smaller one on the left side is seen as well No evidence of nephro or ureterolithiasis is found. No hydronephrosis or ureteral dilatation is seen. The stomach is unremarkable. There is no evidence of gastric dilatation. No blastic thickening is noted to suggest inflammation or tumor. There is no perforation. There is no gastric outlet obstruction. There is no ulceration. The spleen is unremarkable. It is not enlarged. The pancreas shows normal anatomy. It is not fatty replaced. It shows no lesions. The pancreatic duct is not dilated. There is evidence of cholelithiasis. No evidence of acute or chronic inflammation is seen. The adrenal glands are unremarkable. There is no enlargement. No lesions are noted. The liver is unremarkable. It shows no focal masses. The visualized segments of large and small bowel appear unremarkable. The bony and vascular structures are unremarkable for the patient's age. MRCP is likewise unremarkable. The common bile duct is well as the intrahepatic bile ducts are well seen without filling defects to suggest calculi. There are no areas of dilatation or abrupt cutoffs. IMPRESSION: Cholelithiasis. No evidence of acute inflammation of the gallbladder. Bilateral breast masses or solid lesions. Consider bilateral diagnostic mammography with bilateral ultrasound. BI-RADS: CATEGORY 0: INCOMPLETE. NEED ADDITIONAL IMAGING EVALUATION.
--- NOTE | 2025-03-10 11:43 | CONS ---
CONSULT NOTE: Consulting physician: Dr. Perez Consulting service: General surgery Reason for consultation: Cholelithiasis and possible cholecystitis versus symptomatic cholelithiasis History of present illness: This is a 64-year-old female with a medical history listed below that has been consulted to surgery for concerns of abdominal pain associated with nausea and vomiting and decreased oral intake for the last week. Patient with known history of cholelithiasis. Patient has not followed up with a surgeon at this time but has had multiple presentations of concerning abdominal discomfort. Due to significant worsening discomfort patient presented for further evaluation. With the patient's known history of cholelithiasis MRCP ordered which is currently unremarkable for inflammation of gallbladder. Patient is however still reporting upper quadrant discomfort. Patient currently NPO. WBCs unremarkable and LFTs unremarkable as well. Medical history: Known cholelithiasis Gastritis Glaucoma Hyperlipidemia GERD Diabetes Surgical history: Polypectomy Hysterectomy Review of systems: General: No Fever, No Chills, No Night Sweats, No Fatigue, No Malaise, No Appetite, No Other HEENT: No Head Aches, No Visual Changes, No Eye Pain, No Ear Pain, No Dysphasia, No Sinus Congestion, No Post Nasal Drip, No Sore Throat, No Other Pulmonary: No Dyspnea, No Cough, No Pleuritic Chest Pain, No Other Cardiovascular: No: Chest Pain, Palpitations, Orthopnea, Paroxysmal No Dyspnea, Edema, Lt Headedness, Other Gastrointestinal: No: Nausea, Vomiting, Diarrhea, Constipation, Melena, Hematochezia, Other Genitourinary: No Dysuria, No Frequency, No Incontinence, No Hematuria, No Retention, No Other Musculoskeletal: No: other, neck pain, shoulder pain, arm pain, back pain, hand pain, leg pain, foot pain Skin: No Urticaria, No Rash, No Other Neurological: No: Weakness, Numbness, Incoordination, Change in speech, Confusion, Seizures, Other Physical exam: General: Awake alert and oriented Heart: Regular rate and rhythm} Lungs: [Clear to auscultation no distress Abdomen: [Right upper quadrant tenderness Assessment: This is a 64-year-old female with concerns of cholelithiasis and possible symptomatic cholelithiasis versus cholecystitis Plan: This point in time we will obtain HIDA scan for better evaluation of true cholecystitis Patient to remain NPO Patient to continue with current pain management Dr. Tovar to be updated in patient's status and surgical team will continue to follow patient closely. Thank you ANGELIA COYLE Jr. March 10, 2025 11:43
--- NOTE | 2025-03-10 13:44 | HMCIMG ---
HIDA scan INDICATION: cholecystitis. TECHNIQUE: Patient was administered 7 mCi of technetium 99m Choletec IV and dynamic images of the abdomen were obtained over 1 hour. FINDINGS: There is rapid and homogeneous uptake of radiopharmaceutical by the liver, which shows normal size and shape. Activity in the gallbladder noted 20 to 25 minutes after injection of tracer. Normal hepatic clearance with activity in the small bowel. IMPRESSION: No evidence of acute or chronic cholecystitis.
[2025-03-10] MEDS ORDERED: DICYCLOMINE HCL 10 MG/5 ML ML PO ONE (17:00)
[2025-03-10] MEDS ORDERED: MAG/ALUM/SIMETH 30 ML UDCUP PO ONE (17:00)
[2025-03-10] MEDS ORDERED: LIDOCAINE HCL 2% VISCOUS 15 ML UDCUP PO ONE (17:00)
[2025-03-10] MEDS: ketOROlac 15MG/ML VIAL (15MG/ML) IV PRN (17:27)
--- NOTE | 2025-03-10 18:44 | NUR ---
CT ON HOLD OLGA MEZA, PT HAVING QUESTIONS ABOUT CT DUE TO POSSIBLE CLAUSTROPHOBIA AT THIS TIME. OLGA MEZA WILL CALL BACK WITH UPDATE.
[2025-03-10] MEDS: VITAMIN E MIXED PO SCH (21:00)
[2025-03-10] MEDS: VITAMIN D3 PO SCH (21:00)
[2025-03-10] MEDS: [UNRECOGNIZED DRUG - OTHER] PO SCH (21:00)
[2025-03-10] MEDS: CALCIUM CARBONATE PO SCH (21:00)
[2025-03-10] MEDS: PANTOPrazole 40 MG/VIAL IVP SCH (21:35)
[2025-03-10] MEDS: LACTULOSE 20 GM/30 ML UDCUP PO ONE (21:36)
[2025-03-10] MEDS: GABApentin 100 MG CAPSULE PO SCH (21:36)
[2025-03-11] VITALS: BP 123/81; PULSE 74; RESP 18; TEMP 97.8
[2025-03-11 03:52] LABS: BASOPHILS # (AUTO) 0.03 K/uL (0.00-0.20); BASOPHILS % (AUTO) 0.6 % (0.0-5.0); EOSINOPHILS % (AUTO) 2.1 % (0.0-8.0); HEMATOCRIT 36.3 % (36-48); IMMATURE GRANULOCYTE ABSOLUTE 0.01 K/uL (0-1); LYMPHOCYTES # (AUTO) 1.8 K/uL (1.0-4.8); LYMPHOCYTES % (AUTO) 38.4 % (21.0-51.0); MEAN CORPUSCULAR HEMOGLOBIN 30.5 pg (27.0-33.0); MEAN CORPUSCULAR HGB CONC 34.7 g/dL (32.0-36.0); MEAN CORPUSCULAR VOLUME 87.9 fL (79-99); MONOCYTES # (AUTO) 0.4 K/uL (0.1-1.0); MONOCYTES % (AUTO) 7.8 % (3.0-13.0); NEUTROPHILS # (AUTO) 2.4 K/uL (1.8-7.7); NEUTROPHILS % (AUTO) 50.9 % (40.0-77.0); PLATELET COUNT (AUTO) 228 K/uL (130-400); RED BLOOD CELL COUNT(AUTO) 4.13 MIL/uL (4.00-5.50); RED CELL DISTRIBUTION WIDTH 12.1 % (11.0-15.5); WHITE BLOOD COUNT (AUTO) 4.8 K/uL (4.8-10.8)
[2025-03-11 04:00] VITALS: BP 129/55; PULSE 78; RESP 17; TEMP 97.8
[2025-03-11 04:19] LABS: ALBUMIN 3.7 g/dL (3.5-5.0); BILIRUBIN,TOTAL 0.6 mg/dL (0.2-1.0); CREATININE 0.5 mg/dL (0.5-1.0); POTASSIUM 3.7 mmol/L (3.5-5.1); TOTAL PROTEIN, SERUM 6.5 g/dL (6.0-8.3)
--- NOTE | 2025-03-11 05:42 | CONS ---
GASTROINTESTINAL CONSULTATION ADMITTING PHYSICIAN: Say Niño MD REASON FOR CONSULTATION: Right upper quadrant abdominal pain and acute anemia. HISTORY OF PRESENT ILLNESS: The patient is a 64-year-old female with a history of diabetes mellitus and obesity who has undergone hysterectomy and who was admitted with right upper quadrant abdominal pain, nausea, anorexia with acute anemia on labs, for which GI evaluation and management are sought. The patient was noted to have gallstones also on the imaging study, but workup has been negative with respect to MRCP for choledocholithiasis and HIDA scan for cholecystitis. The patient reports that her right upper quadrant abdominal pain has been on and off over the last 10 days. The pain initially began 10 days ago which resolved and started back 5 days ago. She describes the abdominal pain as sharp, constant, unchanged with p.o. food intake or bowel movement and generally radiates to her right back. She denies any abdominal trauma and a history of PUD but admits to history of NSAID use. The patient denies any nausea, vomiting, melena, hematochezia, diarrhea, or constipation. She has weight loss of 15 pounds over the last 9 months, which she owes to Ozempic therapy. The patient reports a family history of gallbladder disease in her mother, but she denies a family history of colon cancer, stomach cancer, esophageal disorders, pancreatic disease, or liver disease. ALLERGIES: CLINDAMYCIN AND CODEINE. PAST MEDICAL AND PAST SURGICAL HISTORY: See above. Also history of diabetes mellitus and Licona's palsy, also glaucoma but no hypertension, coronary artery disease, myocardial infarction, cerebrovascular accident, peptic ulcer, seizure disorder, or asthma. She reports hyperlipidemia though. The patient has undergone hysterectomy. MEDICATIONS: Gabapentin, biotin, omega-3, fish oil, calcium carbonate, vitamin E, pantoprazole, ketorolac, insulin, potassium chloride supplement, hydralazine, morphine sulfate, guaifenesin/dextromethorphan, nitroglycerin, lactulose, milk of magnesia, zolpidem tartrate, ondansetron, acetaminophen, diphenhydramine, magnesium sulfate, and glucagon. SOCIAL HISTORY: The patient denies alcohol use, tobacco use, or illicit drug use. FAMILY HISTORY: Significant for diabetes mellitus and hyperlipidemia, also possible hypertension but no coronary artery disease or myocardial infarction, cerebrovascular accident, colon cancer, stomach cancer, esophageal disorders, liver disease, or pancreatic disease, but she admits to gallbladder disease. REVIEW OF SYSTEMS: CONSTITUTIONAL: The patient reports abdominal pain and nausea, has subsided now. She still has anorexia. She denies any gross GI bleed, fevers, or chills. OPHTHALMOLOGY: She has no vision changes, eye pain, periorbital swelling, redness, or drainage now but does have a history of glaucoma. DERMATOLOGY: Denies any rash, bruise, or excessive dry skin. ENT: No ear pain, tinnitus, hearing loss, nasal congestion, rhinorrhea, sore throat, or voice changes. RESPIRATORY: Denies wheezes, rhonchi, epistaxis, chest congestion, or cough. CARDIOVASCULAR: No chest pain, palpitations, or leg swelling. GENITOURINARY: No dysuria, hematuria, urgency, or frequency. GASTROINTESTINAL: Right upper quadrant abdominal pain and nausea, improved since hospitalization. She still has anorexia. She denies any gross GI bleed, constipation, diarrhea, melena, or hematochezia. MUSCULOSKELETAL: No joint pain, joint swelling, or backache. NEUROLOGY: No tingling, numbness, vision changes, or hearing loss. PSYCHIATRY: No history of depression, anxiety, suicidal plans or ideation. ENDOCRINOLOGY: She has a history of diabetes mellitus and hyperlipidemia but no thyroid disease. HEMATOLOGY/LYMPHATICS: The patient denies any inherited bleeding disorder; easy bruising; swollen, tender or palpable lymph nodes. PHYSICAL EXAMINATION: GENERAL: The patient is a 64-year-old female who appears stated age, resting in bed in no acute respiratory distress. VITAL SIGNS: Blood pressure 146/64, heart rate 65, respirations 19, temperature 98.1 degrees Fahrenheit. SKIN: Warm and dry with no active dermatosis. HEENT: The patient's head is normocephalic atraumatic. Pupils reactive. Sclerae anicteric. Oral mucosa was moist. No obvious lesion. No blood noted. Nasal mucosa showed no epistaxis, septal deviation, or perforation. NECK: No masses, no jugular venous distention, no lymphadenopathy, no thyromegaly. LUNGS: Clear to auscultation bilaterally. HEART: S1 and S2. No obvious murmurs, rubs, or gallops auscultated. ABDOMEN: Symmetric, soft with active bowel sounds. No hepatomegaly or masses. Marked tenderness noted in the right lower abdominal quadrant with guarding. No rebound tenderness. EXTREMITIES: No cyanosis, clubbing, or edema. RECTAL: Deferred. LABORATORY DATA: WBC 3.3, hemoglobin 12.1, hematocrit 35.4, MCV of 89.2, platelet count 218. PT 10.4, INR 0.98. Serum chemistry revealed today sodium of 141, potassium of 4.2, chloride of 106, CO2 of 27, BUN of 6, creatinine of 0.5, GFR of 106, random glucose of 85, lactic acid of 1.1, total calcium of 8.8, magnesium level of 2.2. Total bilirubin of 0.5, direct bilirubin of 0.1, AST 16, ALT 17, alk phos 62, ammonia level of 20. Total creatinine kinase of 44. Troponin I high sensitivity of less than 4. Beta-type natriuretic peptide 27. Total protein of 6.2, albumin of 3.7. Procalcitonin less than 0.05. One day ago, lipase level was 51. UA was essentially negative. Influenza type A and B antigens were negative. HIDA scan done today was normal with no evidence of acute or chronic cholecystitis. MRCP done today showed cholelithiasis. No evidence of acute inflammation of the gallbladder. The spleen, stomach, and pancreas are within normal limits. Liver is unremarkable. There is evidence of cholelithiasis. IMPRESSION: * Right upper quadrant abdominal pain with history of NSAID use and anemia, suggests possible PUD. * Gastritis, duodenitis, possible. * History of H. pylori disease. This patient has a risk for recurrent disease and this may be contributing to her right upper quadrant pain. * Still malfunctioning dyskinetic gallbladder cannot be excluded. * Diabetes mellitus. * Glaucoma. PLAN: * Continue on a clear liquid diet. * Recommend EGD for further evaluation and management. * Recommend a colonoscopy also. * The above workup is unrevealing. Consider HIDA scan with ejection fraction. * Follow up with a.m. labs. Dr. Niño, thank you for allowing me to participate in the care of this patient. TID: [id number] RECEIPT: [id number] cc: Say Niño MD
[2025-03-11 08:00] VITALS: BP 133/71; PULSE 65; RESP 19; TEMP 98.2; O2SAT 65
[2025-03-11] MEDS: EPA PO SCH (08:24)
[2025-03-11] MEDS: FISH OIL PO SCH (08:24)
[2025-03-11] MEDS: BIOTIN PO SCH (08:24)
[2025-03-11] MEDS: OMEGA PO SCH (08:24)
[2025-03-11] MEDS: DHA PO SCH (08:24)
--- NOTE | 2025-03-11 08:43 | NUR ---
NURSING NOTES PATIENT SPOKE TO ME THIS MORNING AROUND 0700 STATES SHE DOESN'T WANT TO GO FOR EGD TODAY WITH DR. MCALLISTER BECAUSE SHE HAS A GI DOCTOR WHICH IS DR.NOLAN ETIENNE AND SHE WANTS IT DONE WITH HIM. DR. KEARNEY (HOSPITALIST) WAS NOTIFIED. DR. MCALLISTER'S OFFICE WAS NOTIFIED VIA EMPLOYEE, STATES SHE WILL INFORM DR. MCALLISTER SO HE CAN CALL US BACK.WAITING FOR HIM TO RETURN OUR CALL.
--- NOTE | 2025-03-11 09:04 | HMCIMG ---
CT ABDOMEN PELVIS WITHOUT CONTRAST Clinical Information: ruq radiating to back , h/o ovarian cyst Comparison: Ultrasound pelvis July 23, 2019, mammograms February 20, 2024 and February 22, 2025 PROTOCOL: Routine noncontrast helical scanning of the abdomen and pelvis was performed at 5mm collimation. Findings: 2 right breast nodules are identified, stable since mammograms of 2024 and 2023. No evidence of nephro or ureterolithiasis is found. No hydronephrosis or ureteral dilatation is seen. The lung bases are clear. The spleen, pancreas, gallbladder and adrenal glands are unremarkable. The liver is unremarkable. It shows no focal masses. The appendix is unremarkable. There is diverticulosis of the colon particularly involving the sigmoid colon. There are no acute inflammatory changes to suggest diverticulitis. The small and large bowel and pelvic viscera are otherwise unremarkable. The bony and vascular structures are unremarkable for the patient's age. The right adnexa and lower abdomen and right side demonstrates a 12 x 7 cm bilobed cystic lesion. IMPRESSION: Diverticulosis of the colon particularly involving the sigmoid. Bilateral cystic lesion of the right adnexa, interval development when compared to prior examination, 2018. Consider further evaluation with repeat pelvic ultrasound. Stable right breast nodules. This study was performed using dose reduction techniques to include automated exposure control and/or adjustment of the mA and/or kV according to patient size.
--- NOTE | 2025-03-11 11:00 | PN ---
This is a 64-year-old female with concerns of cholelithiasis Interval history: This 64-year-old female seen in her room feeling much better Patient tolerating diet HIDA scan yesterday negative for cholecystitis No other acute events reported at this time Physical exam General: Awake alert and oriented Heart: Regular rate and rhythm} Lungs: Clear to auscultation no distress Abdomen: [Soft, nontender, nondistended Assessment : This is a 64-year-old female with concerns of cholelithiasis Plan: At this point in time patient to be cleared from surgical standpoint where she will be scheduled to follow up with Dr. Tovar in outpatient setting for elective cholecystectomy Patient has been made aware of plan and agrees. Surgical team to sign off at this time. Thank you Vitals/Labs Vital Signs Date Time Temp Pulse Resp B/P (MAP) Pulse Ox O2 Delivery O2 Flow Rate FiO2 03/11/25 08:00 98.2 65 19 133/71 96 Room Air 03/10/25 21:40 0 21 Laboratory Tests 03/11/25 03:40 Medications Current Medications Lactated Ringer's 1,000 ml @ 0 mls/hr ONCE ONCE IV Last administered on 03/09/25at 11:28; Start 03/09/25 at 11:30; Stop 03/09/25 at 11:31; Status DC Morphine Sulfate 4 mg ONCE ONCE IVP Last administered on 03/09/25at 11:27; Start 03/09/25 at 11:30; Stop 03/09/25 at 11:31; Status DC Ketorolac Tromethamine 15 mg ONCE ONCE IV Last administered on 03/09/25at 11:27; Start 03/09/25 at 11:30; Stop 03/09/25 at 11:31; Status DC Insulin Human Regular INSULIN SLIDING SCAL... ACHS SQ; Start 03/09/25 at 16:30; Stop 04/08/25 at 16:29 Dextrose 50 ml AD PRN IV; Start 03/09/25 at 14:00; Stop 04/08/25 at 13:59 Glucagon 1 mg AD PRN IM; Start 03/09/25 at 14:00; Stop 04/08/25 at 13:59 Potassium Chloride 100 ml @ 100 mls/hr AD PRN IV; Start 03/09/25 at 14:00; Stop 04/08/25 at 13:59 Potassium Chloride 10 meq AD PRN PO; Start 03/09/25 at 14:00; Stop 04/08/25 at 13:59 Potassium Chloride 10 meq AD PRN PO; Start 03/09/25 at 14:00; Stop 03/09/25 at 13:56; Status DC Magnesium Sulfate 50 ml @ 0 mls/hr PROTOCOL PRN IV; Start 03/09/25 at 14:00; Stop 04/08/25 at 13:59 Diphenhydramine HCl 25 mg Q6H PRN IV; Start 03/09/25 at 14:00; Stop 04/08/25 at 13:59 Acetaminophen 650 mg Q6H PRN PO; Start 03/09/25 at 14:00; Stop 04/08/25 at 13:59 Acetaminophen 650 mg Q4H PRN PO; Start 03/09/25 at 14:00; Stop 04/08/25 at 13:59 Ondansetron HCl 4 mg Q6H PRN IV; Start 03/09/25 at 14:00; Stop 04/08/25 at 13:59 Zolpidem Tartrate 5 mg HS PRN PO; Start 03/09/25 at 14:00; Stop 04/08/25 at 13:59 Al Hydroxide/Mg Hydroxide 30 ml Q6H PRN PO; Start 03/09/25 at 14:00; Stop 04/08/25 at 13:59 Lactulose 20 gm BID PRN PO; Start 03/09/25 at 14:00; Stop 04/08/25 at 13:59 Nitroglycerin 0.4 mg PROTOCOL PRN SL; Start 03/09/25 at 14:00; Stop 04/08/25 at 13:59 Guaifenesin/ Dextromethorphan 10 ml Q4H PRN PO; Start 03/09/25 at 14:00; Stop 04/08/25 at 13:59 Famotidine 20 mg BID PRN IV; Start 03/09/25 at 14:00; Stop 03/09/25 at 13:53; Status DC Acetaminophen 650 mg Q6H PRN PO; Start 03/09/25 at 14:00; Stop 03/09/25 at 13:52; Status DC Ketorolac Tromethamine 15 mg Q8H PRN IV Last administered on 03/09/25at 14:10; Start 03/09/25 at 14:00; Stop 03/09/25 at 20:56; Status DC Oxycodone/ Acetaminophen 1 tab Q6H PRN PO; Start 03/09/25 at 14:00; Stop 03/09/25 at 13:54; Status DC Morphine Sulfate 1 mg Q4H PRN IVP; Start 03/09/25 at 14:00; Stop 03/16/25 at 13:59 Sodium Chloride 1,000 ml @ 100 mls/hr Q10H IV Last administered on 03/11/25at 00:47; Start 03/09/25 at 14:00; Stop 04/08/25 at 13:59 Hydralazine HCl 10 mg Q6H PRN IV; Start 03/09/25 at 14:00; Stop 04/08/25 at 13:59 Famotidine 20 mg BID IV Last administered on 03/10/25at 09:22; Start 03/09/25 at 21:00; Stop 03/10/25 at 12:26; Status DC Potassium Chloride 10 meq AD PRN PO; Start 03/09/25 at 14:00; Stop 04/08/25 at 13:59 Lorazepam 0.5 mg ONCE ONCE IVP; Start 03/09/25 at 16:30; Stop 03/09/25 at 16:28; Status DC Diazepam 5 mg ONCE ONCE IVP Last administered on 03/09/25at 16:32; Start 03/09/25 at 17:00; Stop 03/09/25 at 17:01; Status DC Gadoterate Meglumine 5 mmol STK-MED ONCE IV; Start 03/09/25 at 17:12; Stop 03/09/25 at 17:12; Status DC Ketorolac Tromethamine 15 mg Q6H PRN IV Last administered on 03/10/25at 04:50; Start 03/09/25 at 21:00; Stop 03/10/25 at 11:43; Status DC Home Med (Biotin 1 TAB) DAILY PO; Start 03/11/25 at 09:00; Stop 04/10/25 at 08:59 Home Med (Calcium Carbonate/ Vitamin... BID PO; Start 03/10/25 at 21:00; Stop 04/09/25 at 20:59 Home Med (Ira-3/ Dha/Epa/ Fish ... DAILY PO; Start 03/11/25 at 09:00; Stop 04/10/25 at 08:59 Home Med (Vitamin E Mixed (Ashleigh... HS PO; Start 03/10/25 at 21:00; Stop 04/09/25 at 20:59 Pantoprazole Sodium 40 mg DAILY IVP Last administered on 03/11/25at 08:24; Start 03/10/25 at 20:00; Stop 04/09/25 at 19:59 Lidocaine HCl 10 ml ONCE ONCE PO; Start 03/10/25 at 17:00; Stop 03/10/25 at 17:17; Status DC Al Hydroxide/Mg Hydroxide 30 ml ONCE ONCE PO; Start 03/10/25 at 17:00; Stop 03/10/25 at 17:17; Status DC Dicyclomine HCl 10 mg ONCE ONCE PO; Start 03/10/25 at 17:00; Stop 03/10/25 at 17:17; Status DC Gabapentin 100 mg TID PO Last administered on 03/11/25at 08:23; Start 03/10/25 at 21:00; Stop 04/09/25 at 20:59 Ketorolac Tromethamine 15 mg Q6H PRN IV Last administered on 03/10/25at 17:27; Start 03/10/25 at 17:00; Stop 03/15/25 at 16:59 Lactulose 20 gm ONCE ONCE PO Last administered on 03/10/25at 21:36; Start 03/10/25 at 21:00; Stop 03/10/25 at 21:01; Status DC ANGELIA COYLE Jr. March 11, 2025 11:00
[2025-03-11 12:00] VITALS: BP 133/71; PULSE 65; RESP 19; TEMP 98.2
[2025-03-11] MEDS ORDERED: MAGNESIUM CHLORIDE 64 MG TABLET.SA PO ONE (12:00)
--- NOTE | 2025-03-11 13:09 | DS ---
Discharge Summary Hospital Course Summary: Patient is 64 years old female with a past medical history of polyps removal, hysterectomy, gastritis, glaucoma, hyperlipidemia, diabetes, gallstones, GERD, who came to emergency department for evaluation of the right upper quadrant pain associated with the nausea, vomiting and decreased oral intake for the past 1 week. The pain radiates to her back on right side and appears to be dermatomal. Previously she was here at [facility] and she was notified that she had gallstone and asked to follow up with GI outpatient. Since the pain has not resolved and that is intolerable patient decided to come to emergency department today. As per the patient , she has been experiencing similar pain, but low intensity more than a decade. She has noted the pain gets worse with fatty food intake . She had a colonoscopy done in 2019- with polypectomy , but she didnt show up for subsequent colonoscopy after 3 years . Vital signs at the time of presentation :Temperature 98.2�, pulse 61 ,respiration 12, blood pressure 121/48, patient is on room air satting 97%. Labs show : WBC hemoglobin 13 hematocrit 38.5 Platelets 252, urinalysis negative sodium 140 potassium 3.9 CO2 30 BUN 8 creatinine 0.5 GFR 106 bilirubin 0.5 AST 70 ALT 21 albumin 4.3 lipase 51. Chest x-ray negative. 03/01/2025 ultrasound abdomen showed small gallstones. In borderline ductal dilation is seen. Patient was admitted under hospitalist care for further evaluation. During hospital stay, patient was treated with IV Toradol, gabapentin and GI cocktail with considerable improvement of her condition. No further nausea or vomiting reported. Gastroenterology recommended endoscopy-patient refused endoscopy this time ( she wanted the endoscopy to be done by Dr. Gopal lawton who is her outpatient manager [place] ). Surgery was consulted. HIDA scan was negative. Recommended outpatient follow-up for possible elective cholecystectomy if indicated. MRCP was negative except for nodule in the right breast. As per the patient she has been having this nodule for years and is undergoing screening mammogram every year ,the nodule size has been stable. CT abdomen showed 12x7 cm bilobed right-sided adnexal cystic lesion. As per the patient her left ovary and uterus has been removed and she is following up with Dr. Layton as outpatient. 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 The patient had a right dermatomal pain, provisional diagnosis of shingles was made .No rash is seen . Shared decision making was done and patient will be started on Acylovir . Patient is stable at the time of discharge. Data Security Consultant(s): CONSULT NOTE: Consulting physician: Dr. Perez Consulting service: General surgery Reason for consultation: Cholelithiasis and possible cholecystitis versus symptomatic cholelithiasis History of present illness: This is a 64-year-old female with a medical history listed below that has been consulted to surgery for concerns of abdominal pain associated with nausea and vomiting and decreased oral intake for the last week. Patient with known history of cholelithiasis. Patient has not followed up with a surgeon at this time but has had multiple presentations of concerning abdominal discomfort. Due to significant worsening discomfort patient presented for further evaluation. With the patient's known history of cholelithiasis MRCP ordered which is currently unremarkable for inflammation of gallbladder. Patient is however still reporting upper quadrant discomfort. Patient currently NPO. WBCs unremarkable and LFTs unremarkable as well. Medical history: Known cholelithiasis Gastritis Glaucoma Hyperlipidemia GERD Diabetes Surgical history: Polypectomy Hysterectomy Review of systems: General: No Fever, No Chills, No Night Sweats, No Fatigue, No Malaise, No Appetite, No Other HEENT: No Head Aches, No Visual Changes, No Eye Pain, No Ear Pain, No Dysphasia, No Sinus Congestion, No Post Nasal Drip, No Sore Throat, No Other Pulmonary: No Dyspnea, No Cough, No Pleuritic Chest Pain, No Other Cardiovascular: No: Chest Pain, Palpitations, Orthopnea, Paroxysmal No Dyspnea, Edema, Lt Headedness, Other Gastrointestinal: No: Nausea, Vomiting, Diarrhea, Constipation, Melena, Hematochezia, Other Genitourinary: No Dysuria, No Frequency, No Incontinence, No Hematuria, No Retention, No Other Musculoskeletal: No: other, neck pain, shoulder pain, arm pain, back pain, hand pain, leg pain, foot pain Skin: No Urticaria, No Rash, No Other Neurological: No: Weakness, Numbness, Incoordination, Change in speech, Confusion, Seizures, Other Physical exam: General: Awake alert and oriented Heart: Regular rate and rhythm} Lungs: [Clear to auscultation no distress Abdomen: [Right upper quadrant tenderness Assessment: This is a 64-year-old female with concerns of cholelithiasis and possible symptomatic cholelithiasis versus cholecystitis Plan: This point in time we will obtain HIDA scan for better evaluation of true cholecystitis Patient to remain NPO Patient to continue with current pain management Dr. Tovar to be updated in patient's status and surgical team will continue to follow patient closely. Thank you ANGELIA COYLE Jr. March 10, 2025 11:43 Electronically Signed by: ANGELIA COYLE Jr., LAI, LAI03/10/25 1143 Electronically Co-Signed by: GASTROINTESTINAL CONSULTATION ADMITTING PHYSICIAN: Say Niño MD REASON FOR CONSULTATION: Right upper quadrant abdominal pain and acute anemia. HISTORY OF PRESENT ILLNESS: The patient is a 64-year-old female with a history of diabetes mellitus and obesity who has undergone hysterectomy and who was admitted with right upper quadrant abdominal pain, nausea, anorexia with acute anemia on labs, for which GI evaluation and management are sought. The patient was noted to have gallstones also on the imaging study, but workup has been negative with respect to MRCP for choledocholithiasis and HIDA scan for cholecystitis. The patient reports that her right upper quadrant abdominal pain has been on and off over the last 10 days. The pain initially began 10 days ago which resolved and started back 5 days ago. She describes the abdominal pain as sharp, constant, unchanged with p.o. food intake or bowel movement and generally radiates to her right back. She denies any abdominal trauma and a history of PUD but admits to history of NSAID use. The patient denies any nausea, vomiting, melena, hematochezia, diarrhea, or constipation. She has weight loss of 15 pounds over the last 9 months, which she owes to Ozempic therapy. The patient reports a family history of gallbladder disease in her mother, but she denies a family history of colon cancer, stomach cancer, esophageal disorders, pancreatic disease, or liver disease. ALLERGIES: CLINDAMYCIN AND CODEINE. PAST MEDICAL AND PAST SURGICAL HISTORY: See above. Also history of diabetes mellitus and Licona's palsy, also glaucoma but no hypertension, coronary artery disease, myocardial infarction, cerebrovascular accident, peptic ulcer, seizure disorder, or asthma. She reports hyperlipidemia though. The patient has undergone hysterectomy. MEDICATIONS: Gabapentin, biotin, omega-3, fish oil, calcium carbonate, vitamin E, pantoprazole, ketorolac, insulin, potassium chloride supplement, hydralazine, morphine sulfate, guaifenesin/dextromethorphan, nitroglycerin, lactulose, milk of magnesia, zolpidem tartrate, ondansetron, acetaminophen, diphenhydramine, magnesium sulfate, and glucagon. SOCIAL HISTORY: The patient denies alcohol use, tobacco use, or illicit drug use. FAMILY HISTORY: Significant for diabetes mellitus and hyperlipidemia, also possible hypertension but no coronary artery disease or myocardial infarction, cerebrovascular accident, colon cancer, stomach cancer, esophageal disorders, liver disease, or pancreatic disease, but she admits to gallbladder disease. REVIEW OF SYSTEMS: CONSTITUTIONAL: The patient reports abdominal pain and nausea, has subsided now. She still has anorexia. She denies any gross GI bleed, fevers, or chills. OPHTHALMOLOGY: She has no vision changes, eye pain, periorbital swelling, redness, or drainage now but does have a history of glaucoma. DERMATOLOGY: Denies any rash, bruise, or excessive dry skin. ENT: No ear pain, tinnitus, hearing loss, nasal congestion, rhinorrhea, sore throat, or voice changes. RESPIRATORY: Denies wheezes, rhonchi, epistaxis, chest congestion, or cough. CARDIOVASCULAR: No chest pain, palpitations, or leg swelling. GENITOURINARY: No dysuria, hematuria, urgency, or frequency. GASTROINTESTINAL: Right upper quadrant abdominal pain and nausea, improved since hospitalization. She still has anorexia. She denies any gross GI bleed, constipation, diarrhea, melena, or hematochezia. MUSCULOSKELETAL: No joint pain, joint swelling, or backache. NEUROLOGY: No tingling, numbness, vision changes, or hearing loss. PSYCHIATRY: No history of depression, anxiety, suicidal plans or ideation. ENDOCRINOLOGY: She has a history of diabetes mellitus and hyperlipidemia but no thyroid disease. HEMATOLOGY/LYMPHATICS: The patient denies any inherited bleeding disorder; easy bruising; swollen, tender or palpable lymph nodes. PHYSICAL EXAMINATION: GENERAL: The patient is a 64-year-old female who appears stated age, resting in bed in no acute respiratory distress. VITAL SIGNS: Blood pressure 146/64, heart rate 65, respirations 19, temperature 98.1 degrees Fahrenheit. SKIN: Warm and dry with no active dermatosis. HEENT: The patient's head is normocephalic atraumatic. Pupils reactive. Sclerae anicteric. Oral mucosa was moist. No obvious lesion. No blood noted. Nasal mucosa showed no epistaxis, septal deviation, or perforation. NECK: No masses, no jugular venous distention, no lymphadenopathy, no thyromegaly. LUNGS: Clear to auscultation bilaterally. HEART: S1 and S2. No obvious murmurs, rubs, or gallops auscultated. ABDOMEN: Symmetric, soft with active bowel sounds. No hepatomegaly or masses. Marked tenderness noted in the right lower abdominal quadrant with guarding. No rebound tenderness. EXTREMITIES: No cyanosis, clubbing, or edema. RECTAL: Deferred. LABORATORY DATA: WBC 3.3, hemoglobin 12.1, hematocrit 35.4, MCV of 89.2, platelet count 218. PT 10.4, INR 0.98. Serum chemistry revealed today sodium of 141, potassium of 4.2, chloride of 106, CO2 of 27, BUN of 6, creatinine of 0.5, GFR of 106, random glucose of 85, lactic acid of 1.1, total calcium of 8.8, magnesium level of 2.2. Total bilirubin of 0.5, direct bilirubin of 0.1, AST 16, ALT 17, alk phos 62, ammonia level of 20. Total creatinine kinase of 44. Troponin I high sensitivity of less than 4. Beta-type natriuretic peptide 27. Total protein of 6.2, albumin of 3.7. Procalcitonin less than 0.05. One day ago, lipase level was 51. UA was essentially negative. Influenza type A and B antigens were negative. HIDA scan done today was normal with no evidence of acute or chronic cholecystitis. MRCP done today showed cholelithiasis. No evidence of acute inflammation of the gallbladder. The spleen, stomach, and pancreas are within normal limits. Liver is unremarkable. There is evidence of cholelithiasis. IMPRESSION: * Right upper quadrant abdominal pain with history of NSAID use and anemia, suggests possible PUD. * Gastritis, duodenitis, possible. * History of H. pylori disease. This patient has a risk for recurrent disease and this may be contributing to her right upper quadrant pain. * Still malfunctioning dyskinetic gallbladder cannot be excluded. * Diabetes mellitus. * Glaucoma. PLAN: * Continue on a clear liquid diet. * Recommend EGD for further evaluation and management. * Recommend a colonoscopy also. * The above workup is unrevealing. Consider HIDA scan with ejection fraction. * Follow up with a.m. labs. Dr. Niño, thank you for allowing me to participate in the care of this patient. TID: [id number] RECEIPT: [id number] Procedure(s): PROCEDURE: CXR1VW - CHEST 1VW Exam Type: CHEST 1VW Clinical Information: chest pain Comparison: None Findings: The lungs are clear. The heart is normal in size. There is tortuosity of the aorta which artifactually enlarges the mediastinum. No actual mediastinal pathology is detected. IMPRESSION: Tortuous aorta. Clear lungs. DICTATED BY: FEDERICO ROMANO MD DATE: 03/09/251217 ELECTRONICALLY SIGNED BY: FEDERICO ROMANO MD DATE: 03/09/25 1222 PROCEDURE: MRCP WWO - MRCP(ABDWWO)CHOLANGIOPANCREATO Exam Type: MRI OF THE ABDOMEN WITH AND WITHOUT CONTRAST and MR cholangiopancreatography Comparison Study: none History: anbormal us, cholecystitis PROTOCOL: Examination is done with multiecho multiplanar sequences before and after gadolinium administration. ASSET with multiplanar 3-D reconstructions MR cholangiopancreatography sequences are also available for review. MRCP performed customary fashion. 2D axial FIESTA fat-saturated images of abdomen, coronal thick slab MRCP ASSET scan and coronal thin slab MRCP ASSET 3 mm images and maximum intensity projection postprocessing, MIP projected in the customary circumferential and head over heels fashion. Contrast: MultiHance, 15 cc, IV FINDINGS: Enhancing masses of the right breast are seen, the largest of which measures 20 mm. Smaller one on the left side is seen as well No evidence of nephro or ureterolithiasis is found. No hydronephrosis or ureteral dilatation is seen. The stomach is unremarkable. There is no evidence of gastric dilatation. No blastic thickening is noted to suggest inflammation or tumor. There is no perforation. There is no gastric outlet obstruction. There is no ulceration. The spleen is unremarkable. It is not enlarged. The pancreas shows normal anatomy. It is not fatty replaced. It shows no lesions. The pancreatic duct is not dilated. There is evidence of cholelithiasis. No evidence of acute or chronic inflammation is seen. The adrenal glands are unremarkable. There is no enlargement. No lesions are noted. The liver is unremarkable. It shows no focal masses. The visualized segments of large and small bowel appear unremarkable. The bony and vascular structures are unremarkable for the patient's age. MRCP is likewise unremarkable. The common bile duct is well as the intrahepatic bile ducts are well seen without filling defects to suggest calculi. There are no areas of dilatation or abrupt cutoffs. IMPRESSION: Cholelithiasis. No evidence of acute inflammation of the gallbladder. Bilateral breast masses or solid lesions. Consider bilateral diagnostic mammography with bilateral ultrasound. BI-RADS: CATEGORY 0: INCOMPLETE. NEED ADDITIONAL IMAGING EVALUATION. DICTATED BY: FEDERICO ROMANO MD DATE: 03/10/25 1004 ELECTRONICALLY SIGNED BY: FEDERICO ROMANO MD DATE: 03/10/25 1010 PROCEDURE: HIDAWO - NM HIDA WO EF/CCK HIDA scan INDICATION: cholecystitis. TECHNIQUE: Patient was administered 7 mCi of technetium 99m Choletec IV and dynamic images of the abdomen were obtained over 1 hour. FINDINGS: There is rapid and homogeneous uptake of radiopharmaceutical by the liver, which shows normal size and shape. Activity in the gallbladder noted 20 to 25 minutes after injection of tracer. Normal hepatic clearance with activity in the small bowel. IMPRESSION: No evidence of acute or chronic cholecystitis. DICTATED BY: FEDERICO ROMANO MD DATE: 03/10/25 1341 ELECTRONICALLY SIGNED BY: FEDERICO ROMANO MD DATE: 03/10/25 134 PROCEDURE: ABD PEL WO - CT ABDOMEN/PELVIS W/O CONTRAST CT ABDOMEN PELVIS WITHOUT CONTRAST Clinical Information: ruq radiating to back , h/o ovarian cyst Comparison: Ultrasound pelvis July 23, 2019, mammograms February 20, 2024 and February 22, 2025 PROTOCOL: Routine noncontrast helical scanning of the abdomen and pelvis was performed at 5mm collimation. Findings: 2 right breast nodules are identified, stable since mammograms of 2024 and 2023. No evidence of nephro or ureterolithiasis is found. No hydronephrosis or ureteral dilatation is seen. The lung bases are clear. The spleen, pancreas, gallbladder and adrenal glands are unremarkable. The liver is unremarkable. It shows no focal masses. The appendix is unremarkable. There is diverticulosis of the colon particularly involving the sigmoid colon. There are no acute inflammatory changes to suggest diverticulitis. The small and large bowel and pelvic viscera are otherwise unremarkable. The bony and vascular structures are unremarkable for the patient's age. The right adnexa and lower abdomen and right side demonstrates a 12 x 7 cm bilobed cystic lesion. IMPRESSION: Diverticulosis of the colon particularly involving the sigmoid. Bilateral cystic lesion of the right adnexa, interval development when compared to prior examination, remote, 2019. Consider further evaluation with repeat pelvic ultrasound. Stable right breast nodules. This study was performed using dose reduction techniques to include automated exposure control and/or adjustment of the mA and/or kV according to patient size. DICTATED BY: FEDERICO ROMANO MD DATE: 03/11/25857 ELECTRONICALLY SIGNED BY: FEDERICO ROMANO MD DATE: 03/11/25903 Assessment/Plan: DISCHARGE DIAGNOSIS: Acute cholecystitis ruled out POA Acute choledocholithiasis POA Abdominal pain and Intractable nausea and vomiting secondary to Choledocholithiasis POA Uncontrolled diabetes mellitus type 2 with hyperglycemia POA Uncontrolled hypertension POA Rt adnexal cyst , POA Chronic problems : Hyperlipidemia GERD Glaucoma Gastritis H/o bilateral nodular breast densities- stable mammogram reports as per outpatient records. History of hysterectomy History of polyp removal ASSESSMENT: Acute choledocholithiasis POA Severe abdominal pain above POA Intractable nausea and vomiting POA Fluids normal saline at 100 mL/hour MRCP- unremarkable . Negative HIDA scan Surgery recommended outpatient cholecystectomy Patient refused in hospital Endoscopy -follow up with outpatient gastroenterology . Increase oral hydration Rt upper quadrant dermatomal pain ,POA Primarily suspected secondary to choledocholithiasis. Patient also found to have right adnexal cyst and the possibility of referred pain can not be excluded. 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 But given the dermatomal distribution of pain and improvement with gabapentin, shared decision making was done. The presentation could be a prodromal neuritic pain of shingles and it is well documented that 75% of patients might develop dermatomal neuritic pain before the onset of vesicles (which can happen in 3-4 days). Shared decision making was done to start the patient on acyclovir for possible shingles .the patient can continue the medication for at least 3 days or as per the direction of the primary care physician. Potential side effects of Oral Acyclovir not limited to : Headaches, fatigue , dizziness, nausea , vomiting , diarrhea , deranged kidney function , sin react ion including sensitivity to sunlight. Follow-up with your primary care doctor as outpatient Discharge Instructions: DATE OF ADMISSION: DATE OF DISCHARGE: DISPOSITION: CONDITION: Medically stable CONSULTANTS: FOLLOW UP APPOINTMENTS: FOLLOW UP WITH YOUR PRIMARY CARE DOCTOR IN 1-3 DAYS FOLLOW-UP WITH EPIC INTERFACE ANALYST FOR RIGHT ADNEXAL CYST FOLLOW-UP WITH SURGEON FOR ELECTIVE CHOLECYSTECTOMY RECOMMENDED. FOLLOW-UP WITH GASTROENTEROLOGY FOR A POSSIBLE ENDOSCOPY PROCEDURES: IMAGING: report attached to summary MICROBIOLOGY: report attached to summary HOME MEDICATIONS: see med rec NEW MEDICATIONS: See medication reconciliation EMERGENCY INSTRUCTIONS: The patient was instructed to present to the nearest Emergency department or call 911 once their symptoms will return or worsen. Home Medications: Reported Medications Vitamin E Mixed (Vitamin E) 400 Unit Tablet, 1 TAB PO HS for 30 Days, #30 TAB 0 Refills 5/6/25 [place]-3/Dha/Epa/Fish Oil (Fish Oil 1,000 mg Softgel) 1,000 Mg (120 Mg-180 Mg) Capsule, 1000 MG PO DAILY, CAP 5/6/25 Biotin (Biotin) 10 Mg Tablet, 1 TAB PO DAILY for 30 Days, #30 TAB 0 Refills 5/6/25 Omeprazole (Omeprazole) 40 Mg Capsule.dr, 1 CAP PO DAILY for 30 Days, #30 CAP 0 Refills 5/6/25 Sucralfate (Sucralfate) 1 Gram Tablet, 1 TAB PO TID for 30 Days, #90 TAB 0 Refills 5/6/25 Calcium Carbonate/Vitamin D3 (Calcium 500 + Vit D 200 Tablet) 500 Mg Calcium-5 Mcg (200 Unit) Tablet, 1 TAB PO BID for 30 Days, #60 TAB 0 Refills 5/6/25 Time spent arranging discharge: 1-30 minutes ATTESTATION BY PHYSICIAN I have seen and examined the patient. I reviewed the documentation, medical decision making, and treatment plan as noted by the resident provider above. I agree with the findings and plan of care. Stan Larson MD, ANCHU A MD March 11, 2025 13:09
[2025-03-11] MEDS ORDERED: GABA-529 PO (14:04)
[2025-03-11] MEDS ORDERED: VALA100031 PO (14:04)
--- NOTE | 2025-03-11 15:15 | NUR ---
DISCHARGE DISCHARGE ORDERS FOR PATIENT TO BE DISCHARGED HOME OBTAINED. DISCHARGE INSTRUCTIONS AND DOCUMENTATION GIVEN TO PATIENT AT BEDSIDE. VOICED UNDERSTANDING. IV DISCONTINUED, CATHETER INTACT, NO S/S OF INFECTION NOTED TO SITE. PATIENT TOLERATED WELL. BANDS REMOVED. PATIENT LEFT VIA WHEELCHAIR, ACCOMPANIED BY . NO S/S OF DISTRESS NOTED.
--- NOTE | 2025-03-12 14:45 | NUR ---
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 States followed up with PCP - Dr. Hooker and the doctor discontinued the anti-viral medication. States PCP - Dr. Hooker will set up to follow up appointment for gynecology - Dr. Layton; she will call set up the follow up appointment with GI - Dr. Gopal Nolen; and patient is aware of follow up appointment with surgeon - Dr. Tovar. No further questions or concerns at this time.
== END 2025-03-11 15:30 | disposition home or self-care (01) | DRG 446 ==
LOC: EDH 10:48 → EDHIP 13:41 → 4DH 03-10 00:10
PROVIDERS: ADMIT Internal Medicine; ATTEND Internal Medicine
DX: K80.70 Calculus of gallbladder and bile duct without cholecystitis without obstruction (principal); E11.65 Type 2 diabetes mellitus with hyperglycemia; I10 Essential (primary) hypertension; K29.70 Gastritis, unspecified, without bleeding; K21.9 Gastro-esophageal reflux disease without esophagitis; D64.9 Anemia, unspecified; E66.9 Obesity, unspecified; E78.5 Hyperlipidemia, unspecified; Z82.49 Family history of ischemic heart disease and other diseases of the circulatory system; Z83.3 Family history of diabetes mellitus; Z86.19 Personal history of other infectious and parasitic diseases; Z90.710 Acquired absence of both cervix and uterus; Z68.24 Body mass index [BMI] 24.0-24.9, adult
CPT/HCPCS: 36415; 71045; 74176; 74183; 78226; 80048; 80053; 80076; 81003; 82140; 82550; 82948; 83036; 83605; 83690; 83735; 83880; 84145; 84484; 85025; 85610; 86140; 87086; 87804; 99285; A9537; G0378; J1885; J2270; J2470; J3360; J3490; J7120; A9575